=== PATIENT | male | born 1950 | race Caucasian/White ===

== ENCOUNTER 2022-08-10 10:50 | Observation (INO) ==
--- NOTE | 2022-08-10 11:02 | Emergency Department Note ---
Impression & Plan Atypical chest pain, Hypertension, Hyperlipidemia, Bifascicular block ED Provider Note NAME: MIKA FERRIS AGE: 72 SEX: M : 1950 ARRIVES VIA: Ambulance INFORMANT: Patient, ED PROVIDER(S): Melchor Atkins MD CHIEF COMPLAINT: MEDICAL DECISION MAKING: Patient presented due to concern for chest pain and palpitations. The patient did receive 4 baby aspirin en route. Patient did have blood work completed along with an EKG troponin and chest x- ray. Patient's blood work showed a normal white count H&H and platelet count. Kidney function is unremarkable. BSG 115 bilirubin 1.1. Patient has no right upper quadrant pain the patient is not DKA. Patient's initial troponin is negative. COVID-negative. Chest x-ray no acute findings. EKG with no signs of obvious acute ischemia. Given the patient's complaints of exertional chest pain do not think that the patient should immediately obtain a .stress test as the patient would have a moderate risk heart score. Given this concern I did speak with the on-call ospitalist service santhosh Kim and the patient was admitted by the medicine service by Dr. 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 Patient was ordered a stress echocardiogram at that time which was completed June 07, 2021. Patient had a negative exercise stress echo for ischemia at 84% max predicted heart rate as well as negative exercise stress EKG. There is no reported chest pain at the time of his stress test and the patient's echo showed normal LV function with no evidence of wall motion abnormalities and estimated LV ejection fraction 50 to 55%. Mild concentric LVH noted. Left atrium mildly dilated right ventricle normal size and function. Aortic root is normal size and the ascending aorta is also normal. Differential diagnosis: Cardiac ischemia, aortic dissection, pulmonary embolism, pneumothorax, pneumonia, pericarditis, myocarditis, esophageal rupture, GERD, cholecystitis, pancreatitis, musculoskeletal, as well as other pathologies. Diagnostics, as interpreted by me: ECG: Normal sinus rhythm, left axis deviation, rate of 71 wide QRS, right bundle branch block pattern. No obvious ST elevations, T wave inversion in lead III. Patient's EKG looks grossly unchanged from April 14, 2021. Cardiac monitoring: An order was placed for continuous cardiac monitoring. The monitor shows a rate of 77 with sinus rhythm. Patient was placed on pulse oximetry Medical decision rules: none Imaging studies: See below HPI: Patient presents due to concern for chest pains. Patient states they were left-sided but were occurring with exertion especially going upstairs. Patient denies any nausea vomiting or diaphoresis. The patient denies any alcohol or tobacco use. Patient states that he did have palpitations and lightheadedness today to where he stopped needing to come here to present for further evaluation and treatment. The patient did call EMS and was given 4 baby aspirin. No current chest pain. The patient denies any leg swelling history of DVT or PE no recent surgeries procedures or hospitalizations. Patient denies any falls or trauma no upper respiratory symptoms PAST MEDICAL HISTORY: See Below PAST SURGICAL HISTORY: See Below SOCIAL HISTORY: See Below HOME MEDICATIONS: See Below ALLERGIES: See Below VITALS: See Below PHYSICAL EXAMINATION: GENERAL: NAD, wearing a mask, non-toxic. EYE EXAM: Normal conjunctiva. PERRL, no anisocoria and EOM's grossly intact w/o pain. NECK: Supple, no nuchal rigidity, no adenopathy, non-tender. No signs of meningismus. FROM of the neck with good chin to chest and neck extension. No stridor. Chest: No reproducible chest wall pain. LUNGS: Clear to auscultation. Normal chest wall mechanics. HEART: NSR, no MRG. ABDOMEN: Abdomen soft, non-tender, normo-active bowel sounds, no masses, no rebound or guarding. BACK: No CVA TTP. SKIN: No rashes and no bruising. UPPER EXTREMITIES: Upper extremities are grossly normal. LOWER EXTREMITIES: Grossly normal, no edema. Negative Homans' sign bilaterally. NEURO EXAM: A&O x3, cranial nerves II-XII grossly intact, normal speech, moves all 4 extremities. Past Med/Surg History Medical History Elevated PSA Hyperlipidemia Hypertension Prediabetes Surgical History No significant past surgical history Family History Brother Heart disease Social History Smoking Status: Former smoker Second Hand Exposure: Yes; Do You Dip or Chew Tobacco: No; Tobacco Cessation Education Requested by Patient: Yes Hx Alcohol Use: Yes Alcohol type: wine Hx Substance Use: No Preferred Language: Cymro Communication Ability: Effective Cashier Credit Required: No Beliefs That Will Affect Care: None marital status: Current Living Situation: Spouse current occupational status: employed Other Information That Helps Us Care for You: No Feels Safe at Home: Yes Safety Concerns: Feels Safe At This Time Assistive Devices: None Allergies Allergies Allergy/AdvReac Type Severity Reaction Status Date / Time No Known Allergies Allergy Verified 06/23/22 09:05 Home Meds Home Medications Medication Instructions Recorded Confirmed atorvastatin 20 mg tablet 20 mg PO QAM 07/21/19 08/10/22 multivitamin 1 tab PO QAM 07/21/19 08/10/22 aspirin 81 mg tablet,delayed 81 mg PO QAM 04/13/21 08/10/22 release (Chani Low Dose Aspirin) lisinopril 40 mg tablet 40 mg PO DAILY 09/24/21 08/10/22 Results & Data (ED) Vital Signs Vital Signs - 24 hr 08/10/22 10:59 08/10/22 11:03 08/10/22 11:03 Temperature 36.6 C Temperature Source Oral Pulse Rate 76 Pulse Rate [Apical] 77 Pulse Rhythm [Apical] Regular Respiratory Rate 16 18 Respiratory Effort / Characteristics Non-Labored Respiratory Depth Normal Normal Blood Pressure 155/90 H Blood Pressure Mean 111 Pulse Oximetry 97 97 98 Oxygen Delivery Method Room Air Room Air Room Air Oxygen Flow Rate 0 Sepsis Recent Fever Within 48 Hours No Sepsis New/Unexplained Change in Mental Status N/A Sepsis Action Taken by Nursing No Action Required 08/10/22 12:25 08/10/22 13:02 Temperature Temperature Source Pulse Rate 71 Pulse Rate [Apical] 70 Pulse Rhythm [Apical] Respiratory Rate 16 Respiratory Effort / Characteristics Respiratory Depth Blood Pressure Blood Pressure Mean Pulse Oximetry 96 Oxygen Delivery Method Room Air Oxygen Flow Rate Sepsis Recent Fever Within 48 Hours Sepsis New/Unexplained Change in Mental Status Sepsis Action Taken by Intermediate Medications Current Medication List: was personally reviewed by me Laboratory Data Attestation: I reviewed the patient's lab results. 08/10/22 11:00 08/10/22 11:00 Lab Results 08/10/22 08/10/22 08/10/22 Range/Units 11:00 11:00 11:00 WBC 5.15 (4.8-10.8) K/ul RBC 4.88 (4.70-6.10) M/uL Hgb 14.6 (14.0-18.0) g/dl Hct 42.9 (42.0-52.0) % MCV 87.9 (80.0-100.0) fL MCH 29.9 (25.0-34.0) pg MCHC 34.0 (32.0-36.0) g/dL RDW Std Deviation 40.2 (36.4-46.3) fL RDW Coeff of Cierra 12.5 (11.5-14.5) % Plt Count 235 (130-400) K/uL MPV 10.9 (9.4-12.4) fL Immature Gran % (Auto) 0.4 % Neut % (Auto) 57.7 % Lymph % (Auto) 31.8 % Bollinger % (Auto) 7.8 % Eos % (Auto) 1.9 % Baso % (Auto) 0.4 % Neut # (Auto) 2.97 (1.40-6.50) K/uL Lymph # (Auto) 1.64 (1.2-3.4) K/uL Bollinger # (Auto) 0.40 (0.11-0.59) K/uL Eos # (Auto) 0.10 (0-0.50) K/uL Baso # (Auto) 0.02 (0-0.2) K/uL Immature Gran # (Auto) 0.02 (0.01-0.20) K/uL PT 10.6 (9.0-12.0) Seconds INR 1.0 (0.9-1.1) APTT 27.0 (21.0-31.0) Seconds PTT Ratio 1.0 Sodium 138 (136-145) mmol/L Potassium 4.3 (3.5-5.1) mmol/L Chloride 105 (98-107) mmol/L Carbon Dioxide 29 (21-32) mmol/L Anion Gap 4 (3-11) BUN 14 (6-23) mg/dl Creatinine 0.96 (0.6-1.4) mg/dl Est Cr Clr Drug Dosing 81.4 ml/min Est GFR ( Amer) 92.4 ml/min Est GFR (Non-Af Amer) 79.8 ml/min BUN/Creatinine Ratio 14.6 (10-20) Glucose 115 H (70-99(Fasting)) mg/dl Calcium 9.6 (8.5-10.1) mg/dl Total Bilirubin 1.1 H (0.2-1.0) mg/dl AST 18 (13-39) U/L ALT 32 (7-52) U/L Alkaline Phosphatase 52 (34-104) U/L Troponin I High Sens 4.7 (0-20) pg/ml Total Protein 7.4 (6.0-8.3) gm/dl Albumin 4.8 (3.4-5.0) gm/dl Globulin 2.6 (2.5-4.0) gm/dl Albumin/Globulin Ratio 1.8 (0.9-2) Lipase 74 (11-82) U/L Administered Medications Enoxaparin Sodium (Enoxaparin Inj 40 Mg/0.4 Ml Syr) 40 mg SQ Q24H MIKE Stop: 09/09/22 15:59 Last Admin: 08/10/22 16:32 Dose: Not Given Documented By: JOSE Nitroglycerin (Nitroglycerin 2% Ointment 30gm Tube) 0.5 inch EXT Q6H MIKE Stop: 09/09/22 14:44 Last Admin: 08/10/22 15:04 Dose: 0.5 inch Documented By: ARS Imaging Data Radiologist's Impression: Chest X-Ray 08/10/22 11:27 XR chest 1V portable CLINICAL HISTORY: Chest pain, nonspecific COMPARISON STUDY: Chest radiograph April 14, 2021. FINDINGS: Old, healed left clavicular fracture. Lung volumes are normal. Lungs are clear. There is no pneumothorax or pleural effusion. Mild cardiomegaly is unchanged. Mitral annular calcification is present. Mediastinal contours are normal. There is no evidence for pulmonary edema. Dextroscoliosis of the thoracic spine. IMPRESSION: No acute cardiopulmonary findings. No change in appearance of the chest. ACT 112: Negative or not required by law. Electronically signed by: Sabino Scott M.D. 08/10/2022 12:30 PM Discharge Plan Visit Data Chief Complaint: Chest Pain Stated Complaint: CHEST PAIN ED Provider: Melchor Atkins Discharge Problem: Atypical chest pain, Hypertension, Hyperlipidemia, Bifascicular block Patient Disposition: Admitted As Inpatient Discharge Instructions Interventions: ED Discharge Assessment Last Done: 08/10/22 15:38
[2022-08-10 12:12] LABS: Albumin Globulin Ratio 1.8 (0.9-2); Albumin Level 4.8 gm/dl (3.4-5.0); BUN Creatinine Ratio 14.6 (10-20); Bilirubin,Total 1.1 mg/dl (0.2-1.0); Calcium 9.6 mg/dl (8.5-10.1); Creatinine Clr Calc Pharmacy 81.4 ml/min; Est GFR (African American) 92.4 ml/min; Est GFR (Non-African American) 79.8 ml/min; Globulin 2.6 gm/dl (2.5-4.0); Potassium 4.3 mmol/L (3.5-5.1); Total Protein 7.4 gm/dl (6.0-8.3)
[2022-08-10 12:15] LABS: Basophils # (auto) 0.02 K/uL (0-0.2); Basophils % (auto) 0.4 %; Eosinophils % (auto) 1.9 %; Hematocrit (blood only) 42.9 % (42.0-52.0); Hemoglobin 14.6 g/dl (14.0-18.0); Immature Granulocytes # (auto) 0.02 K/uL (0.01-0.20); Immature Granulocytes % (auto) 0.4 %; Lymphocytes # (auto) 1.64 K/uL (1.2-3.4); Lymphocytes % (auto) 31.8 %; Mean Corpuscular Hemoglobin 29.9 pg (25.0-34.0); Mean Corpuscular Volume 87.9 fL (80.0-100.0); Mean Platelet Volume 10.9 fL (9.4-12.4); Monocytes % (auto) 7.8 %; Neutrophils # (auto) 2.97 K/uL (1.40-6.50); Neutrophils % (auto) 57.7 %; Platelet Count 235 K/uL (130-400); RDW Coefficient of Variation 12.5 % (11.5-14.5); RDW Standard Deviation 40.2 fL (36.4-46.3); Red Blood Count 4.88 M/uL (4.70-6.10); White Blood Count 5.15 K/ul (4.8-10.8)
[2022-08-10 12:18] LABS: Troponin I High Sensitivity 4.7 pg/ml (0-20)
--- NOTE | 2022-08-10 12:31 | XRay Report ---
XR chest 1V portable CLINICAL HISTORY: Chest pain, nonspecific COMPARISON STUDY: Chest radiograph April 14, 2021. FINDINGS: Old, healed left clavicular fracture. Lung volumes are normal. Lungs are clear. There is no pneumothorax or pleural effusion. Mild cardiomegaly is unchanged. Mitral annular calcification is pr esent. Mediastinal contours are normal. There is no evidence for pulmonary edema. Dextroscoliosis of the thoracic spine. IMPRESSION: No acute cardiopulmonary findings. No change in appearance of the chest. ACT 112: Negative or not required by law. Electronically signed by: Sabino Scott M.D. 08/10/2022 12:30 PM
[2022-08-10 12:42] LABS: Prothrombin Time 10.6 Seconds (9.0-12.0)
--- NOTE | 2022-08-10 13:47 | History & Physical Report ---
Date of Service August 10, 2022 Assessment & Plan (1) Chest pain: (2) Palpitations: Plan: Patient is 72-year-old male with PMH HTN, HLD, prediabetes, bifascicular block, BPH presented to ER with complaint of chest pain, palpitations. Intermittent symptoms past year. This morning at rest onset palpitations, left anterior chest pain with lightheadedness 04/2021 14-day heart monitor that showed sinus rhythm with rare isolated atrial and ventricular ectopy. Patient triggered events of "skipped beats" sometimes correlated with ectopy. 06/07/2021 stress test: Negative for ischemia at 84% MPHR Currently following with Dr Paul Thomas cardiology CHEST PAIN R/O ACS. Risk factors: HTN, HLD. R/O arrhythmia In ER vitals stable. Initial high-sensitivity troponin: 4.7. EKG sinus rhythm, RBBB, LVH EMS gave patient 324mg aspirin Patient denies current chest pain but reports "hollow sensation" Nitropaste applied Repeat EKG in am Will trend troponin Echo Lipid panel in am, continue atorvastatin Continue aspirin Cardiology consult, [facility] (3) Hypertension: Plan: Continue lisinopril (4) Hyperlipidemia: Plan: Continue atorvastatin (5) Prediabetes: Plan: A1c in a.m. Diabetic diet (6) Bifascicular block: Plan: History of bifascicular block DVT Prophylaxis Lovenox SQ Full Code as per discussion with pt Follows with Dr Tanner at [facility] for routine care Pt was seen and care coordinated with Dr Julien. See addendum I spent a total of 65 minutes reviewing notes, outpatient records, labs, medication, coordinating, documenting and providing care for this patient excluding time spent in the performance of separately billed services. History of Present Illness Chief Complaint: Chest pain Primary Care Provider: Owen Tanner Patient is 72-year-old male with PMH HTN, HLD, prediabetes, bifascicular block, BPH presented to ER with complaint of chest pain. Patient reports for the past year has been having intermittent palpitations. He describes them as sensation that his heart is beating irregular and beating harder. Sometimes this is associated with left-sided chest pain that is nonradiating. Sometimes this pain is sharp. Reports symptoms can occur at rest or with climbing stairs. When occurs with climbing stairs he feels short of breath. Symptoms usually last a few minutes and resolve with rest. Today he was sitting in meeting when he had onset of left-sided chest pain with sensation that his heart was beating hard and he had associated lightheadedness. Patient reports this is the first time he has felt lightheaded with the symptoms. Denies nausea, vomiting, diaphoresis . EMS gave patient 324mg aspirin. In ER patient currently reports he feels like his heart is beating irregularly. Denies chest pain but reports his heart feels "hollow". Denies fever/chills, diaphoresis, N/V/D/C, DANIELLE, syncope, vision changes, neck pain, orthopnea, cough, sore throat, choking, otalgia, rhinorrhea, abdominal pain, paresthesias, weakness, extremity weakness, extremity edema, rashes, urinary symptoms. Per chart review patient was seen by [facility] cardiology on 04/30/2021 for palpitations. Had 14-day heart monitor that showed sinus rhythm with rare isolated atrial and ventricular ectopy. Patient triggered events of "skipped beats" sometimes correlated with ectopy. Stress test 06/07/2021: Negative for ischemia at 84% MPHR States currently following with Dr Paul Thomas cardiology Allergies Allergy/AdvReac Type Severity Reaction Status Date / Time No Known Allergies Allergy Verified 06/23/22 09:05 Home Medications Medication Instructions Recorded Confirmed Type atorvastatin 20 mg tablet 20 mg PO QAM 07/21/19 08/10/22 History multivitamin 1 tab PO QAM 07/21/19 08/10/22 History aspirin 81 mg tablet,delayed 81 mg PO QAM 04/13/21 08/10/22 History release (Chani Low Dose Aspirin) lisinopril 40 mg tablet 40 mg PO DAILY 09/24/21 08/10/22 History Past Med/Surg History Medical History Elevated PSA Hyperlipidemia Hypertension Prediabetes Surgical History No significant past surgical history Family History Brother Heart disease Social History Smoking Status: Former smoker Second Hand Exposure: Yes; Do You Dip or Chew Tobacco: No; Tobacco Cessation Education Requested by Patient: Yes Hx Alcohol Use: Yes Alcohol type: wine Hx Substance Use: No Preferred Language: Luxembourgish Communication Ability: Effective Dna Sequencing Associate Required: No Beliefs That Will Affect Care: None marital status: Current Living Situation: Spouse current occupational status: employed Other Information That Helps Us Care for You: No Feels Safe at Home: Yes Safety Concerns: Feels Safe At This Time Assistive Devices: None Review of Systems Review of Systems: All systems reviewed & are unremarkable except as noted in HPI & below Physical Exam Physical Exam: General: no distress, WDWN Head: normocephalic, atraumatic Eyes: conjunctiva non-injected, anicteric ENT: normal inspection external ears, nose, mucous membranes moist Neck: supple, trachea midline Lungs: clear, no respiratory distress, no wheezing/rhonchi/rales CV: RRR, no murmur, no pretibial edema Abd: normal BS, soft, non-tender Ext: no cyanosis, no calf tenderness Neuro: A&O x 3, no focal deficits noted, normal affect Skin: warm, dry Results & Data Results & Data ([facility]) Vital Signs (Past 12 Hours) Vital Signs Temp Pulse Pulse Resp BP Pulse Ox O2 Del Method 08/10/22 13:02 70 16 96 Room Air 08/10/22 12:25 71 08/10/22 11:03 77 18 98 Room Air 08/10/22 11:03 97 Room Air 08/10/22 10:59 36.6 C 76 16 155/90 H 97 Room Air O2 Flow Rate 08/10/22 13:02 08/10/22 12:25 08/10/22 11:03 08/10/22 11:03 0 08/10/22 10:59 Laboratory Results Short CBC 08/10/22 Range/Units 11:00 WBC 5.15 (4.8-10.8) K/ul Hgb 14.6 (14.0-18.0) g/dl Hct 42.9 (42.0-52.0) % Plt Count 235 (130-400) K/uL BMP 08/10/22 11:00 Sodium 138 Potassium 4.3 Chloride 105 Carbon Dioxide 29 BUN 14 Creatinine 0.96 Glucose 115 H Calcium 9.6 Liver Function 08/10/22 Range/Units 11:00 Total Bilirubin 1.1 H (0.2-1.0) mg/dl AST 18 (13-39) U/L ALT 32 (7-52) U/L Alkaline Phosphatase 52 (34-104) U/L Albumin 4.8 (3.4-5.0) gm/dl Diagnostic Findings Chest X-Ray 08/10/22 11:27 XR chest 1V portable CLINICAL HISTORY: Chest pain, nonspecific COMPARISON STUDY: Chest radiograph April 14, 2021. FINDINGS: Old, healed left clavicular fracture. Lung volumes are normal. Lungs are clear. There is no pneumothorax or pleural effusion. Mild cardiomegaly is unchanged. Mitral annular calcification is present. Mediastinal contours are normal. There is no evidence for pulmonary edema. Dextroscoliosis of the thoracic spine. IMPRESSION: No acute cardiopulmonary findings. No change in appearance of the chest. ACT 112: Negative or not required by law. Electronically signed by: Sabino Scott M.D. 08/10/2022 12:30 PM ECG Rate (beats per minute): 71 Rhythm: sinus rhythm Findings: + other (LVH) and + RBBB Supervising Physician Co-Signing Physician Notes I have seen and examined the patient and have discussed the case with the pr ovider above. I agree with the assessment and plan as stated. 72 yo M nonsmoker with HTN and family history of early CAD in brother in his 50s presents with left anterior chest pain and palpations. His pain is uncomfortable and he is describing malaise. He also reports that his pain is worse with exertion. Nitro paste applied with ongoing 2/10 pain and BP 155 systolic. Trend trop and monitor on tele overnight. Consideration for stress test per cardiology. Has had this issue in thee past with a normal stress. Current trop is negative and no acute ischemic changes on EKG. Phsyical exam is unremarkable. WNWD man in NAD. No anterior chest wall tenderness to palpation. clear lungs, no heart murmur and S1/2 heard. Reeg rate and rhythm. Agree with plan as above. DO Wily (1) Chest pain Chest pain type: unspecified Qualified Code(s): R07.9 - Chest pain, unspecified
[2022-08-10] MEDS: NITROGLYCERIN 2% OINTMENT 30GM TUBE EXT SCH ×2 (15:04→20:02)
--- NOTE | 2022-08-10 15:51 | Electrocardiogram Report ---
Test Reason : Blood Pressure : / mmHG Vent. Rate : 071 BPM Atrial Rate : 071 BPM P-R Int : 164 ms QRS Dur : 128 ms QT Int : 426 ms P-R-T Axes : 018 -40 020 degrees QTc Int : 462 ms Poor data quality, interpretation may be adversely affected Normal sinus rhythm Left axis deviation Right bundle branch block Voltage criteria for left ventricular hypertrophy Cannot rule out Septal infarct (cited on or before 10-AUG-2022) Abnormal ECG When compared with ECG of 14-APR-2021 11:03, Questionable change in initial forces of Septal leads Confirmed by Huang Taylor ([id number]) on 08/10/2022 3:51:35 PM Referred By: Confirmed By:Huang Taylor
[2022-08-10] MEDS ORDERED: POLYETHYLENE (MIRALAX) 17 GM PACK PO PRN (15:52)
[2022-08-10] MEDS ORDERED: ACETAMINOPHEN 325 MG TAB PO PRN (15:52)
[2022-08-10] MEDS ORDERED: PNEUMOCOCCAL Polysaccharide Vaccine 25mcg/0.5mL vial/Syr IM ONE (16:30)
[2022-08-10] MEDS: ENOXAPARIN INJ 40 MG/0.4 ML SYR SQ SCH (16:32)
[2022-08-11 03:14] LABS: Hemoglobin 13.5 g/dl (14.0-18.0); Mean Corpuscular Hemoglobin 29.9 pg (25.0-34.0); Mean Corpuscular Hgb Conc 34.6 g/dL (32.0-36.0); Mean Corpuscular Volume 86.5 fL (80.0-100.0); Mean Platelet Volume 10.6 fL (9.4-12.4); Platelet Count 229 K/uL (130-400); RDW Coefficient of Variation 12.6 % (11.5-14.5); RDW Standard Deviation 39.8 fL (36.4-46.3); Red Blood Count 4.51 M/uL (4.70-6.10); White Blood Count 9.86 K/ul (4.8-10.8)
[2022-08-11 03:29] LABS: BUN Creatinine Ratio 15.8 (10-20); Calcium 9.2 mg/dl (8.5-10.1); Chol HDL Ratio 3.4 (0-5); Creatinine Clr Calc Pharmacy 74.1 ml/min; Est GFR (African American) 86.9 ml/min; Potassium 3.9 mmol/L (3.5-5.1)
[2022-08-11 06:21] LABS: Estimated Average Glucose 137 mg/dl; Hemoglobin A1C 6.4 % (4.5-5.6)
[2022-08-11] MEDS ORDERED: ASPIRIN 81 MG ECTAB PO SCH (09:00)
[2022-08-11] MEDS ORDERED: lisinopril 40 MG TAB PO SCH (09:00)
[2022-08-11] MEDS ORDERED: ATORVASTATIN 20 MG TAB PO SCH (09:00)
--- NOTE | 2022-08-11 12:08 | XCELERA ---
[id number]
--- NOTE | 2022-08-11 14:47 | Cardiology Consultation ---
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 Systolic anterior motion of the mitral leaflet: Discussed findings with patient. Recommended stress echo to evaluate for LVOT obstruction with exercise and also for additional Doppler to investigate for obstruction with Valsalva. Stress echo performed. Mild gradient with Valsalva and severe gradient following exercise, consistent with LVOT obstruction from ROXANNE. Recommend metoprolol 25 mg twice daily. This will likely require further titration. If blood pressure acceptable, would recommend reduction in PRAVEEN inhibitor. Remain well-hydrated. 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 2. LVOT obstruction: Plan as above. Increase diastolic filling time and preload. 3. Palpitations: Symptoms occur anytime but triggered by more strenuous exercise. Stress echo as above demonstrating significant LVOT obstruction following exercise. Treat with beta-miroslava as above and reassess symptoms. Optimize medical therapy as appropriate. 4. Paroxysmal atrial tachycardia: Unclear if this is playing a role in his symptoms but may improve with beta-miroslava as above. 5. Hypertension: Blood pressure has been mostly mildly elevated. Initiating beta-miroslava as above. Can continue PRAVEEN inhibitor for now but overall symptoms/obstruction may improve with reduction in PRAVEEN inhibitor as well as titration of betablocker. Further adjustments can be made as an outpatient. 6. Disposition: Can be discharged from a cardiology perspective, on beta- miroslava as noted above. Close follow-up with his primary navy seal, Dr. Miller, recommended within 1 to 2 weeks. Echo and stress echo findings were discussed with him in detail. Patient care personally discussed with primary hospitalist, Dr. Julien. Thank you for allowing me to participate in the care of your patient. Please call for any other questions or concerns. Sincerely, Iraj Michelle M.D. History of Present Illness Reason for Consultation: Chest pain Requesting Physician: Andria Kim Attending Physician: Alcira Julien, History of Present Illness Mr. Arias is a very pleasant 72-year-old gentleman with a history significant for hypertension, dyslipidemia, and borderline diabetes. His primary navy seal is Dr. Miller in the [place] area. He has had the following studies/procedures: 1. Event monitor 04/24/2021 to 05/13/2021: Rare isolated atrial and ventricular ectopy. "Skipped beats" sometimes correlated with ectopy. 2. Stress echo 06/07/2021 MI PG: Negative stress echo at 84% MPHR. Normal LV systolic function. 6 minutes Steve protocol. He presented and was admitted to [facility] on 08/10/2022 for chest discomfort and palpitations. He states that he has been experiencing symptoms for approximately 1 year, ever since he developed right bundle branch block. He was seen by Dr. Miller in the outpatient setting, prior to these symptoms with no specific treatment necessary at that time. He states that symptoms can occur anytime and typically feel as though his heart is beating hard and fast. He states that this makes his chest uncomfortable. This can be triggered by climbing stairs but also occurs at rest. On the day of presentation, it occurred during a meeting and he felt near syncopal. Symptoms persisted for approximately 15 minutes, before subsiding. He also describes a "hollow" feeling in his chest. This has been nearly constant while here and was present during today's visit. He states that this worsens with coffee within 30 minutes. He has dyspnea with exertion while climbing stairs but believes it is due to being deconditioned. He otherwise denies shortness of breath at rest. He denies syncope, edema, melena, hematochezia, hematuria, nausea, vomiting, fever. He does not wear a smart watch or Fitbit. When he has palpitations, he is not certain of his heart rate. Dr. Julien reports that he had palpitations while in the emergency department and there was no arrhythmia noted on telemetry. Review of systems: As above. Review of systems otherwise negative/unremarkable. Family history: Younger brother had CABG in his 50s. Mother had "tachycardia." Social history: He denies smoking, alcohol, or drug abuse. He lives at home with his . They have 3 children, 1 son and 2 daughters. He works for [employer], currently in the [place] department. He was unaccompanied in his hospital room for this consultation. Allergies Allergy/AdvReac Type Severity Reaction Status Date / Time No Known Allergies Allergy Verified 06/23/22 09:05 Home Medications Medication Instructions Recorded Confirmed Type atorvastatin 20 mg tablet 20 mg PO QAM 07/21/19 08/10/22 History multivitamin 1 tab PO QAM 07/21/19 08/10/22 History aspirin 81 mg tablet,delayed 81 mg PO QAM 04/13/21 08/10/22 History release (Chani Low Dose Aspirin) lisinopril 40 mg tablet 40 mg PO DAILY 09/24/21 08/10/22 History Patient History Medical History Elevated PSA Hyperlipidemia Hypertension Prediabetes Surgical History No significant past surgical history Family History Brother Heart disease Social History Smoking Status: Former smoker Second Hand Exposure: Yes; Do You Dip or Chew Tobacco: No; Tobacco Cessation Education Requested by Patient: Yes Hx Alcohol Use: Yes Alcohol type: wine Hx Substance Use: No Preferred Language: Luxembourgish Communication Ability: Effective 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 Alert and oriented. HEENT: Anicteric sclera. Neck: No JVD. No bruits. Normal carotid upstrokes bilaterally. Cardiac: PMI was nondisplaced. No ventricular heave. Regular. No ectopy. Normal S1-S2. 2/6 systolic ejection murmur best heard at right upper sternal border. No rubs, or gallops. Pulmonary: Clear to auscultation bilaterally without wheezes, rales, or rhonchi. Abdomen: Soft, nontender, nondistended, with normoactive bowel sounds. No bruits noted. Extremities: 2+ radial pulses bilaterally. 2+ posterior tibialis pulses bilaterally. No edema or cyanosis. Psychiatric: Affect appears appropriate. Results & Data ([facility]) Vital Signs (Past 12 Hours) Vital Signs Temp Pulse Resp BP Pulse Ox O2 Del Method 08/11/22 11:30 36.6 C 64 18 153/72 H 96 Room Air 08/11/22 07:14 36.6 C 60 16 117/72 94 Room Air 08/11/22 04:13 36.5 C 58 L 18 116/60 95 Room Air Laboratory Results Laboratory Results - last 24 hr 08/10/22 08/10/22 08/10/22 15:07 16:55 21:09 WBC RBC Hgb Hct MCV MCH MCHC RDW Std Deviation RDW Coeff of Cierra Plt Count MPV Sodium Potassium Chloride Carbon Dioxide Anion Gap BUN Creatinine Est Cr Clr Drug Dosing Est GFR ( Amer) Est GFR (Non-Af Amer) BUN/Creatinine Ratio Glucose POC Glucose 133 H Estimat Average Glucose Hemoglobin A1c Calcium Troponin I High Sens 5.5 5.9 Triglycerides Cholesterol LDL Cholesterol, Calc VLDL Cholesterol, Calc HDL Cholesterol Cholesterol/HDL Ratio 08/11/22 08/11/22 08/11/22 02:37 02:37 02:37 WBC 9.86 RBC 4.51 L Hgb 13.5 L Hct 39.0 L MCV 86.5 MCH 29.9 MCHC 34.6 RDW Std Deviation 39.8 RDW Coeff of Cierra 12.6 Plt Count 229 MPV 10.6 Sodium 138 Potassium 3.9 Chloride 105 Carbon Dioxide 27 Anion Gap 6 BUN 16 Creatinine 1.01 Est Cr Clr Drug Dosing 74.1 Est GFR ( Amer) 86.9 Est GFR (Non-Af Amer) 75.0 BUN/Creatinine Ratio 15.8 Glucose 116 H POC Glucose Estimat Average Glucose 137 Hemoglobin A1c 6.4 H Calcium 9.2 Troponin I High Sens Triglycerides 127 Cholesterol 136 LDL Cholesterol, Calc 71 VLDL Cholesterol, Calc 25 HDL Cholesterol 40 Cholesterol/HDL Ratio 3.4 08/11/22 02:37 WBC RBC Hgb Hct MCV MCH MCHC RDW Std Deviation RDW Coeff of Cierra Plt Count MPV Sodium Potassium Chloride Carbon Dioxide Anion Gap BUN Creatinine Est Cr Clr Drug Dosing Est GFR ( Amer) Est GFR (Non-Af Amer) BUN/Creatinine Ratio Glucose POC Glucose Estimat Average Glucose Hemoglobin A1c Calcium Troponin I High Sens 5.7 Triglycerides Cholesterol LDL Cholesterol, Calc VLDL Cholesterol, Calc HDL Cholesterol Cholesterol/HDL Ratio Diagnostic Findings Telemetry personally reviewed: Sinus rhythm. No arrhythmia. Rare PAC. Previous stress echo report and event monitor report reviewed as noted above in HPI. Chart reviewed. History and physical report reviewed. ECGs personally reviewed: ECG 08/10/2022 at 10:55 AM: Sinus rhythm 71 bpm. RBBB. LVH. ECG 08/11/2022 at 5:28 AM: Sinus rhythm 64 bpm. RBBB. LVH. Chest x-ray 08/10/2022: No acute cardiopulmonary findings. Echo 08/11/2022: Normal LV size, wall motion, systolic function. EF 65 to 70%. Severe LVH. Severe left atrial dilation. Mild AI. Systolic anterior motion of the mitral leaflet without significant obstruction at baseline. Normal RVSP. Labs reviewed: High-sensitivity troponin remain negative. Medications Administered Current Inpatient Medications Acetaminophen (Acetaminophen 325 Mg Tab) 650 mg PO Q4H PRN PRN Reason: Pain or Fever Stop: 09/09/22 15:51 Last Admin: 08/11/22 02:52 Dose: 650 mg Aspirin (Aspirin 81 Mg Ectab) [facility] Stop: 09/10/22 08:59 Last Admin: 08/11/22 07:20 Dose: 81 mg Atorvastatin Calcium (Atorvastatin 20 Mg Tab) 20 mg PO QAM [facility] Stop: 09/10/22 08:59 Last Admin: 08/11/22 07:20 Dose: 20 mg Enoxaparin Sodium (Enoxaparin Inj 40 Mg/0.4 Ml Syr) 40 mg SQ Q24H [facility] Stop: 09/09/22 15:59 Last Admin: 08/10/22 16:32 Dose: Not Given Lisinopril (Lisinopril 40 Mg Tab) 40 mg PO DAILY [facility] Stop: 09/10/22 08:59 Last Admin: 08/11/22 07:20 Dose: 40 mg Nitroglycerin (Nitroglycerin 2% Ointment 30gm Tube) 0.5 inch EXT Q6H [facility] Stop: 09/09/22 14:44 Last Admin: 08/10/22 20:02 Dose: 0.5 inch Polyethylene Glycol (Polyethylene (Miralax) 17 Gm Pack) 17 gm PO DAILY PRN PRN Reason: Constipation Stop: 09/09/22 15:51 PG Care Time/CCT Total # of Minutes Spent Total Time Spent with Patient: Total time spent is greater than 50% in coordination of care (as documented) at patient's floor/unit and/or counseling patient: Coding Level of Care Code 61970 INT INP/OBS CARE MIN Diagnoses Systolic anterior movement of mitral valve I34.89 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
--- NOTE | 2022-08-11 15:21 | XCELERA ---
[id number]
--- NOTE | 2022-08-11 15:46 | Discharge Summary ---
Discharge Summary Date of Service August 11, 2022 Notes For Next Care Provider Needs cardiology follow-up in 2 weeks May need Metoprolol titrated Medication Changes From Visit NEW Metoprolol Admission HPI Per Admitting Provider Patient is 72-year-old male with PMH HTN, HLD, prediabetes, bifascicular block, BPH presented to ER with complaint of chest pain. Patient reports for the past year has been having intermittent palpitations. He describes them as sensation that his heart is beating irregular and beating harder. Sometimes this is associated with left-sided chest pain that is nonradiating. Sometimes this pain is sharp. Reports symptoms can occur at rest or with climbing stairs. When occurs with climbing stairs he feels short of breath. Symptoms usually last a few minutes and resolve with rest. Today he was sitting in meeting when he had onset of left-sided chest pain with sensation that his heart was beating hard and he had associated lightheadedness. Patient reports this is the first time he has felt lightheaded with the symptoms. Denies nausea, vomiting, diaphoresis. EMS gave patient 324mg aspirin. In ER patient currently reports he feels like his heart is beating irregularly. Denies chest pain but reports his heart feels "hollow". Denies fever/chills, diaphoresis, N/V/D/C, DANIELLE, syncope, vision changes, neck pain, orthopnea, cough, sore throat, choking, otalgia, rhinorrhea, abdominal pain, paresthesias, weakness, extremity weakness, extremity edema, rashes, urinary symptoms. Per chart review patient was seen by [facility] cardiology on 04/30/2021 for palpitations. Had 14-day heart monitor that showed sinus rhythm with rare isolated atrial and ventricular ectopy. Patient triggered events of "skipped beats" sometimes correlated with ectopy. 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 Intermittent symptoms past year. He described left anterior chest pain with lightheadedness. Admitted to medicine and cardiology consulted. Overnight telemetry was unremarkable. Nitro paste applied and removed later that night because of relative hypotension. Serial cardiac enzymes were negative overnight and serial EKG did not suggest acute ischemia. Echocardiogram revealed systolic anterior motion of the mitral leaflet and he then underwent a stress echo to evaluate for LVOT obstruction with exercise and for additional Doppler to investigate for obstruction with Valsalva. A mild gradient with Valsalva and severe gradient following exercise resulted, consistent with LVOT obstruction from ROXANNE. Metoprolol 25mg PO BID was started and this will likely require further titration. Close cardiology follow-up was recommended. He was discharged in stable condition. Discharge Exam CONSTITUTIONAL: WNWD, vitals as above, generally well-appearing EYES: normal conjunctivae, no scleral icterus ENT: external ear and nose normal, MMM NECK: trachea midline RESPIRATORY: clear to auscultation bilaterally, no crackles, rales or wheezes, normal respiratory effort CARDIOVASCULAR: regular rate and rhythm, S1 and 2 heard without murmurs, gallops or rubs, no JVD, no peripheral edema CHEST: inspection of chest was normal GASTROINTESTINAL: soft, nontender, ND, no guarding MUSCULOSKELETAL: strength 5/5 throughout, head is normocephalic and atraumatic, SKIN: warm and dry NEUROLOGIC: CN 2-12 grossly intact, no sensory deficit, normal cognition, normal speech, no tremor PSYCHIATRIC: alert cooperative and oriented to person, place and time. Updated Medication List Medication Instructions Recorded Confirmed Type atorvastatin 20 mg tablet 20 mg PO QAM 07/21/19 08/10/22 History multivitamin 1 tab PO QAM 07/21/19 08/10/22 History aspirin 81 mg tablet,delayed 81 mg PO QAM 04/13/21 08/10/22 History release (Chani Low Dose Aspirin) lisinopril 40 mg tablet 40 mg PO DAILY 09/24/21 08/10/22 History metoprolol tartrate 25 mg tablet 25 mg PO BID #60 tabs 08/11/22 Rx Hospital Stay Data Consultations 08/10/22 13:28 ED Decision to Admit Stat 08/10/22 14:25 Consult Cardiology Routine Pending Results Patient Have Any Pending Studies at Discharge: No Discharge Instructions Given to Patient (Per Discharging Provider) Please take all medications as instructed on discharge list below. You are being given METOPROLOL which helps to slow down the heart rate among other things. This medication may need to be adjusted, so a close cardiology follow up in 2 weeks is recommended. Please also follow-up with your primary care physician in the next week to ensure you are improved after hospitalization. It was a pleasure taking care of you! Please call if you have any questions or problems. You can reach a [facility] hospitalist on duty at [facility] 24 hours a day by calling [phone]. Take care of yourself. Alcira Julien, DO [facility] Total Time Total Time Spent Total Time Spent (In Minutes): 60
[2022-08-11] MEDS: ENOXAPARIN INJ 40 MG/0.4 ML SYR SQ SCH (16:28)
--- NOTE | 2022-08-12 04:58 | Electrocardiogram Report ---
Test Reason : Blood Pressure : / mmHG Vent. Rate : 064 BPM Atrial Rate : 064 BPM P-R Int : 174 ms QRS Dur : 126 ms QT Int : 458 ms P-R-T Axes : 023 -42 000 degrees QTc Int : 472 ms Normal sinus rhythm Left axis deviation Right bundle branch block Voltage criteria for left ventricular hypertrophy Abnormal ECG When compared with ECG of 10-AUG-2022 10:55, No significant change Confirmed by Tyler Michelle ([id number]) on 08/12/2022 4:57:38 AM Referred By: REFERRED SELF Confirmed By:Tyler Michelle
== END 2022-08-11 17:25 | disposition home or self-care (01) ==
LOC: ED 10:50 → 2N 10:50

== ENCOUNTER 2022-08-23 07:07 | Inpatient (IN) ==
[2022-08-23] MEDS ORDERED: MoRPHine SULFATE 4 MG/ML 1 ML CARP\\VIAL IV STA ×2 (07:22→09:22)
[2022-08-23] MEDS ORDERED: SODIUM CHLORIDE 0.9% 1000ML 1,000 ML IV STA (07:22)
[2022-08-23] MEDS ORDERED: ONDANSETRON INJ 2 MG/ML 2 ML VIAL IV STA (07:22)
--- NOTE | 2022-08-23 07:29 | Emergency Department Note ---
History of Present Illness General Chief complaint: Abdominal Pain Stated complaint: ABDOMINAL PAIN,NAUSEA Time Seen by Provider: 08/23/22 07:14 History of Present Illness Maximum Pain Intensity: 10 72 year old male who presents to ED today with c/o abdominal pain. Patient states he started with periumbilical abdominal pain 2 nights ago following eating steak dinner. He was able to make himself vomit a couple times and then symptoms eventually resolved on their own. Symptoms returned last night around 9p. The pain is constant and crampy in nature. It radiates to his low back. It seems to worsen after eating. Nothing makes it better. He reports nausea but has been unable to vomit since the previous night. He denies fever, chills, sweats, hematemesis, chest pain, SOB, diarrhea/constipation, hematochezia, melena, urinary symptoms. He took Tums last night without improvement of symptoms. He was scheduled to get his prostate biopsied this morning for further evaluation of enlargement. He took one empiric Cipro antibiotic this morning. He notes a history of a umbilical hernia repair 3.5 years ago. Denies history of AAA, diverticulitis, IBD, kidney stones, UTI. Home Medications Medication Instructions Recorded Confirmed Type atorvastatin 20 mg tablet 20 mg PO QAM 07/21/19 08/23/22 History multivitamin 1 tab PO QAM 07/21/19 08/23/22 History aspirin 81 mg tablet,delayed 81 mg PO QAM 04/13/21 08/23/22 History release (Chani Low Dose Aspirin) lisinopril 40 mg tablet 40 mg PO DAILY 09/24/21 08/23/22 History ciprofloxacin HCl 500 mg tablet 500 mg PO BID #2 tabs 08/22/22 08/23/22 Rx metoprolol tartrate 25 mg tablet 50 mg PO BID 08/23/22 08/23/22 History Allergies Allergy/AdvReac Type Severity Reaction Status Date / Time No Known Allergies Allergy Verified 06/23/22 09:05 Past Med/Surg History Medical History (Updated 08/23/22 @ 16:08 by Kalpana Jacobsen PA-C) Elevated PSA Hyperlipidemia Hypertension Paroxysmal atrial tachycardia Prediabetes Surgical History (Updated 08/23/22 @ 11:24 by Sherley Duff PA-C) Hx of umbilical hernia repair Family History Brother Heart disease Social History (Updated 08/23/22 @ 14:45 by Chantell Mondragon DO) Smoking Status: Former smoker Age Started Using Tobacco: 12; Age Quit Using Tobacco: 20; packs per day: 1; Second Hand Exposure: Yes; Hx Alcohol Use: Yes Alcohol type: wine Hx Substance Use: No Preferred Language: [place] Communication Ability: Effective Safety Intern Required: No Beliefs That Will Affect Care: None marital status: Current Living Situation: Spouse current occupational status: employed Feels Safe at Home: Yes Assistive Devices: None Physical Exam Vital Signs Vital Signs - 24 hr 08/23/22 07:09 08/23/22 07:48 Temperature 36.4 C L Temperature Source Temporal Artery Scan Pulse Rate 64 Pulse Rhythm Regular Pulse Strength Normal Respiratory Rate 24 Respiratory Effort / Characteristics Non-Labored Spontaneous Respiratory Depth Normal Respiratory Pattern Regular Blood Pressure 188/84 H Blood Pressure Mean 118 Blood Pressure Position Sitting Pulse Oximetry 99 99 Oxygen Delivery Method Room Air Nasal Cannula Oxygen Flow Rate 1 Sepsis Recent Fever Within 48 Hours No Sepsis New/Unexplained Change in Mental Status No Sepsis Action Taken by Nursing No Action Required Constitutional: alert and oriented x3. moderate distress. nontoxic appearing Respiratory: lungs are clear to auscultation without wheezes, rhonchi, or rales bilaterally. equal chest rise. normal respiratory effort, no accessory muscle use. Cardiovascular: normal heart sounds without murmur. regular rate and rhythm. GI: abdomen is soft, nondistended. nl bowel sounds present throughout. Diffuse tenderness worse periumbilical. No palpable masses. No rebound tenderness or guarding. No CVA tenderness Psych:appropriate mood and affect. Course Course patient seen and evaluated in rm A10. In moderate distress secondary to pain IV access was established and labs were drawn Patient placed on media monitor, personally interpreted as normal sinus rhythm at 65 bpm He was medicated with IV fluids, zofran and morphine 4mg Reevaluation(s) Reevaluation #1: patient resting comfortably with improved pain s/p medications. Labs and imaging pending Reevaluation #2: Patient updated on exam findings and test results. CT which demonstrates closed loop SBO without evidence of perforation or wall ischemia. Given findings, I have recommendation admission to hospital for further management. Case was discussed with hospitalist, Estefani Duff PA-C who graciously accepted patient to their service. Administered Medications Morphine Sulfate (Morphine Sulfate 4 Mg/Ml 1 Ml Carp\Vial) 4 mg IV Q3H PRN PRN Reason: Pain, severe rating 7,8,9,10 Stop: 09/06/22 14:15 Last Admin: 08/23/22 15:58 Dose: 4 mg Documented By: JOSE Discontinued Medications Sodium Chloride (Nss 1000ml) 1,000 mls @ 999 mls/hr IV .Q1H1M STA Stop: 08/23/22 08:22 Last Infusion: 08/23/22 09:15 Dose: 0 mls/hr Documented By: Admin: 08/23/22 07:43 Dose: 999 mls/hr Documented By: KYRA Ioversol (Optiray 350 100ml) 90 ml IV ONCE ONE Stop: 08/23/22 08:42 Last Admin: 08/23/22 08:42 Dose: 90 ml Documented By: RAY Labetalol HCl (Labetalol Hcl Iv 5 Mg/Ml 20ml) 5 mg IV NOW STA Stop: 08/23/22 11:27 Last Admin: 08/23/22 11:47 Dose: 5 mg Documented By: KYRA Co-signed By: HELENA Morphine Sulfate (Morphine Sulfate 4 Mg/Ml 1 Ml Carp\Vial) 4 mg IV NOW STA Stop: 08/23/22 07:23 Last Admin: 08/23/22 07:43 Dose: 4 mg Documented By: KYRA Morphine Sulfate (Morphine Sulfate 4 Mg/Ml 1 Ml Carp\Vial) 4 mg IV NOW STA Stop: 08/23/22 09:23 Last Admin: 08/23/22 09:31 Dose: 4 mg Documented By: KYRA Morphine Sulfate (Morphine Sulfate 4 Mg/Ml 1 Ml Carp\Vial) 4 mg IV Q3H PRN PRN Reason: Pain Stop: 09/06/22 09:21 Last Admin: 08/23/22 12:19 Dose: 4 mg Documented By: KYRA Ondansetron HCl (Ondansetron Inj 2 Mg/Ml 2 Ml Vial) 4 mg IV NOW STA Stop: 08/23/22 07:23 Last Admin: 08/23/22 07:43 Dose: 4 mg Documented By: KYRA Medical Decision Making Differential Diagnosis SBO, bowel perforation, diverticulitis, IBD, hernia, appendicitis, cholecystitis, rupture/symptomatic AAA, UTI, nephrolithiasis as well as other pathologies Laboratory Data Attestation: I reviewed the patient's lab results. 08/23/22 07:21 08/23/22 07:21 Lab Results 08/23/22 08/23/22 08/23/22 Range/Units 07:21 07:21 08:02 WBC 14.56 H (4.8-10.8) K/ul RBC 5.52 (4.70-6.10) M/uL Hgb 16.4 (14.0-18.0) g/dl Hct 47.6 (42.0-52.0) % MCV 86.2 (80.0-100.0) fL MCH 29.7 (25.0-34.0) pg MCHC 34.5 (32.0-36.0) g/dL RDW Std Deviation 40.2 (36.4-46.3) fL RDW Coeff of [place] 12.9 (11.5-14.5) % Plt Count 305 (130-400) K/uL MPV 10.5 (9.4-12.4) fL Immature Gran % (Auto) 0.3 % Neut % (Auto) 80.0 % Lymph % (Auto) 14.8 % [place] % (Auto) 4.5 % Eos % (Auto) 0.3 % Baso % (Auto) 0.1 % Neut # (Auto) 11.62 H (1.40-6.50) K/uL Lymph # (Auto) 2.16 (1.2-3.4) K/uL [place] # (Auto) 0.66 H (0.11-0.59) K/uL Eos # (Auto) 0.05 (0-0.50) K/uL Baso # (Auto) 0.02 (0-0.2) K/uL Immature Gran # (Auto) 0.05 (0.01-0.20) K/uL Sodium 137 (136-145) mmol/L Potassium 3.8 (3.5-5.1) mmol/L Chloride 101 (98-107) mmol/L Carbon Dioxide 25 (21-32) mmol/L Anion Gap 11 (3-11) BUN 16 (6-23) mg/dl Creatinine 0.98 (0.6-1.4) mg/dl Est Cr Clr Drug Dosing 76.8 ml/min Est GFR ( Amer) 90.2 ml/min Est GFR (Non-Af Amer) 77.8 ml/min BUN/Creatinine Ratio 16.3 (10-20) Glucose 151 H (70-99(Fasting)) mg/dl Lactate 1.8 (0.4-2.0) mmol/L Calcium 10.1 (8.5-10.1) mg/dl Total Bilirubin 1.6 H (0.2-1.0) mg/dl AST 18 (13-39) U/L ALT 41 (7-52) U/L Alkaline Phosphatase 61 (34-104) U/L Total Protein 7.9 (6.0-8.3) gm/dl Albumin 5.1 H (3.4-5.0) gm/dl Globulin 2.8 (2.5-4.0) gm/dl Albumin/Globulin Ratio 1.8 (0.9-2) Lipase 42 (11-82) U/L Urine Color Urine Appearance (Clear) Urine pH (4.5-7.5) Ur Specific [place] (1.000-1.030) Urine Protein (Negative) Urine Glucose (UA) (Negative) Urine Ketones (Negative) Urine Blood (Negative) Urine Nitrite (Negative) Urine Bilirubin (Negative) Urine Urobilinogen (Negative) Ur Leukocyte Esterase (Negative) SARS-CoV-2 (PCR) (Negative) 08/23/22 08/23/22 Range/Units 08:44 09:30 WBC (4.8-10.8) K/ul RBC (4.70-6.10) M/uL Hgb (14.0-18.0) g/dl Hct (42.0-52.0) % MCV (80.0-100.0) fL MCH (25.0-34.0) pg MCHC (32.0-36.0) g/dL RDW Std Deviation (36.4-46.3) fL RDW Coeff of Cierra (11.5-14.5) % Plt Count (130-400) K/uL MPV (9.4-12.4) fL Immature Gran % (Auto) % Neut % (Auto) % Lymph % (Auto) % [place] % (Auto) % Eos % (Auto) % Baso % (Auto) % Neut # (Auto) (1.40-6.50) K/uL Lymph # (Auto) (1.2-3.4) K/uL [place] # (Auto) (0.11-0.59) K/uL Eos # (Auto) (0-0.50) K/uL Baso # (Auto) (0-0.2) K/uL Immature Gran # (Auto) (0.01-0.20) K/uL Sodium (136-145) mmol/L Potassium (3.5-5.1) mmol/L Chloride (98-107) mmol/L Carbon Dioxide (21-32) mmol/L Anion Gap (3-11) BUN (6-23) mg/dl Creatinine (0.6-1.4) mg/dl Est Cr Clr Drug Dosing ml/min Est GFR ( Amer) ml/min Est GFR (Non-Af Amer) ml/min BUN/Creatinine Ratio (10-20) Glucose (70-99(Fasting)) mg/dl Lactate (0.4-2.0) mmol/L Calcium (8.5-10.1) mg/dl Total Bilirubin (0.2-1.0) mg/dl AST (13-39) U/L ALT (7-52) U/L Alkaline Phosphatase (34-104) U/L Total Protein (6.0-8.3) gm/dl Albumin (3.4-5.0) gm/dl Globulin (2.5-4.0) gm/dl Albumin/Globulin Ratio (0.9-2) Lipase (11-82) U/L Urine Color Yellow Urine Appearance Clear (Clear) Urine pH 8.5 H (4.5-7.5) Ur Specific [place] 1.021 (1.000-1.030) Urine Protein Negative (Negative) Urine Glucose (UA) Negative (Negative) Urine Ketones Trace H (Negative) Urine Blood Negative (Negative) Urine Nitrite Negative (Negative) Urine Bilirubin Negative (Negative) Urine Urobilinogen Negative (Negative) Ur Leukocyte Esterase Negative (Negative) SARS-CoV-2 (PCR) NEGATIVE (Negative) Imaging Data Radiologist's Impression: Abdomen/Pelvis CT 08/23/22 07:22 CT abd pelvis IV con only CLINICAL HISTORY: periumbilical abd pain TECHNIQUE: Helical axial images of the abdomen and pelvis were obtained and displayed. Automated dose lowering techniques and/or adjustment according to patient size were utilized for this exam. This exam was performed with intravenous contrast. CT DOSE: 887.11 mGycm COMPARISON: None available at the time of this dictation. FINDINGS: Lower chest: Mitral annular calcifications are partially visualized. Liver: Unremarkable. No focal lesions are seen. Gallbladder and biliary tree: No calcified gallstones. Normal caliber wall. No intra- or extrahepatic biliary ductal dilation. Pancreas: Unremarkable, no focal lesions. Spleen: Splenic cyst measures 17 mm in diameter. Adrenals: Unremarkable. Kidneys and ureters: Bilateral renal cysts are seen. Bladder: Diffuse homogeneous wall thickening is seen. Reproductive organs: Prostatomegaly is seen. Bowel: Extensive diverticulosis is seen. The appendix is normal.. A small hiatal hernia is seen. Numerous dilated loops of small bowel measure up to 38 mm in diameter. Proximal and distal transition points are seen with underdistention of the distal small bowel and colon. Lymph nodes Retroperitoneal: Unremarkable. Pelvic: Unremarkable. Mesenteric: Unremarkable. Peritoneum: A small amount of free fluid is seen most prominently in the pelvis. Vessels: Atherosclerotic calcifications are seen. Abdominal wall: A fat-containing umbilical hernia is seen. Hernia repair mesh is noted. Right fat-containing umbilical hernia is seen. Bones: Degenerative changes in the visualized spine. IMPRESSION: Closed-loop obstruction of the small bowel is seen with underdistention of the distal bowel. No evidence of perforation or suggestion of wall ischemia. ACT 112: Negative or not required by law. Electronically signed by: Pastor Blank M.D. 08/23/2022 9:10 AM MDM Narrative 72 year old male who presents to ED today with c/o acute onset periumbilical abdominal pain. Review of pertinent visits and patient history performed. Vital signs in ED demonstrate hypertensive otherwise within normal limits, afebrile. Labs obtained and demonstrate leukocytosis 14. No evidence of anemia or electrolyte abnormalities. Lactate 1.8. LFTs and Lipase within normal limits. Urinalysis without evidence of infection or blood. CT abd/pelvis personally reviewed as well as interpreted by radiology and demonstrates closed loop SBO without evidence of perforation or wall ischemia. Clinically, patient is nontoxic appearing, in mild distress secondary to pain. He was treated with IV morphine, zofran and fluids within improvement in symptoms. Patient did require 2nd dose of morphine for pain control while in ED. All exam findings and test results were discussed with patient. Given findings of SBO, I recommended admission to hospital for further management. Patient verbalized understanding and is agreeable to this plan. Case was discussed with hospitalist, Estefani Duff PA-C who graciously accepted patient to their service. He was admitted in stable condition. Impression & Plan Complete obstruction of small intestine, Periumbilical abdominal pain Discharge Plan Visit Data Chief Complaint: Abdominal Pain Stated Complaint: ABDOMINAL PAIN,NAUSEA ED Provider: Santino Madrigal ED Midlevel Provider: Kalpana Jacobsen Discharge Problem: Complete obstruction of small intestine, Periumbilical abdominal pain Condition: Good Discharge Instructions Interventions: ED Discharge Assessment Last Done: 08/23/22 13:42
[2022-08-23 07:55] LABS: Basophils # (auto) 0.02 K/uL (0-0.2); Basophils % (auto) 0.1 %; Eosinophils # (auto) 0.05 K/uL (0-0.50); Eosinophils % (auto) 0.3 %; Hematocrit (blood only) 47.6 % (42.0-52.0); Hemoglobin 16.4 g/dl (14.0-18.0); Immature Granulocytes # (auto) 0.05 K/uL (0.01-0.20); Immature Granulocytes % (auto) 0.3 %; Lymphocytes # (auto) 2.16 K/uL (1.2-3.4); Lymphocytes % (auto) 14.8 %; Mean Corpuscular Hemoglobin 29.7 pg (25.0-34.0); Mean Corpuscular Hgb Conc 34.5 g/dL (32.0-36.0); Mean Corpuscular Volume 86.2 fL (80.0-100.0); Mean Platelet Volume 10.5 fL (9.4-12.4); Monocytes # (auto) 0.66 K/uL (0.11-0.59); Monocytes % (auto) 4.5 %; Neutrophils # (auto) 11.62 K/uL (1.40-6.50); Platelet Count 305 K/uL (130-400); RDW Coefficient of Variation 12.9 % (11.5-14.5); RDW Standard Deviation 40.2 fL (36.4-46.3); Red Blood Count 5.52 M/uL (4.70-6.10); White Blood Count 14.56 K/ul (4.8-10.8)
[2022-08-23 08:04] LABS: Albumin Globulin Ratio 1.8 (0.9-2); Albumin Level 5.1 gm/dl (3.4-5.0); BUN Creatinine Ratio 16.3 (10-20); Bilirubin,Total 1.6 mg/dl (0.2-1.0); Calcium 10.1 mg/dl (8.5-10.1); Creatinine Clr Calc Pharmacy 76.8 ml/min; Est GFR (African American) 90.2 ml/min; Est GFR (Non-African American) 77.8 ml/min; Globulin 2.8 gm/dl (2.5-4.0); Potassium 3.8 mmol/L (3.5-5.1); Total Protein 7.9 gm/dl (6.0-8.3)
[2022-08-23] MEDS ORDERED: OPTIRAY 350 100ml IV ONE (08:41)
[2022-08-23 09:10] LABS: Appearance Urine Clear (Clear); Bilirubin Urine Negative (Negative); Blood Urine Negative (Negative); Color Urine Yellow; Glucose Urine UA Negative (Negative); Ketones Urine Trace (Negative); Leukocyte Esterase Urine Negative (Negative); Nitrite Urine Negative (Negative); Protein Urine Negative (Negative); Specific Gravity Urine 1.021 (1.000-1.030); Urobilinogen Urine Negative (Negative); pH Urine 8.5 (4.5-7.5)
--- NOTE | 2022-08-23 09:12 | CT Scan Report ---
CT abd pelvis IV con only CLINICAL HISTORY: periumbilical abd pain TECHNIQUE: Helical axial images of the abdomen and pelvis were obtained and displayed. Automated dose lowering techniques and/or adjustment according to patient size were utilized for this exam. This e xam was performed with intravenous contrast. CT DOSE: 887.11 mGycm COMPARISON: None available at the time of this dictation. FINDINGS: Lower chest: Mitral annular calcifications are partially visualized. Liver: Unremarkable. No focal lesions are seen. Gallbladder and biliary tree: No calcified gallstones. Normal caliber wall. No intra- or extrahepatic biliary ductal dilation. Pancreas: Unremarkable, no focal lesions. Spleen: Splenic cyst measures 17 mm in diameter. Adrenals: Unremarkable. Kidneys and ureters: Bilateral renal cysts are seen. Bladder: Diffuse homogeneous wall thickening is seen. Reproductive organs: Prostatomegaly is seen. Bowel: Extensive diverticulosis is seen. The appendix is normal.. A small hiatal hernia is seen. Nume gavino dilated loops of small bowel measure up to 38 mm in diameter. Proximal and distal transition poi nts are seen with underdistention of the distal small bowel and colon. Lymph nodes Retroperitoneal: Unremarkable. Pelvic: Unremarkable. Mesenteric: Unremarkable. Peritoneum: A small amount of free fluid is seen most prominently in the pelvis. Vessels: Atherosclerotic calcifications are seen. Abdominal wall: A fat-containing umbilical hernia is seen. Hernia repair mesh is noted. Right fat-con taining umbilical hernia is seen. Bones: Degenerative changes in the visualized spine. IMPRESSION: Closed-loop obstruction of the small bowel is seen with underdistention of the distal bowel. No evide nce of perforation or suggestion of wall ischemia. ACT 112: Negative or not required by law. Electronically signed by: Pastor Blank M.D. 08/23/2022 9:10 AM
[2022-08-23] MEDS ORDERED: MoRPHine SULFATE 4 MG/ML 1 ML CARP\\VIAL IV PRN ×2 (09:22→14:16)
--- NOTE | 2022-08-23 09:45 | History & Physical Report ---
Date of Service August 23, 2022 Assessment & Plan (1) Small bowel obstruction: Plan: - Admit to med surg with tele - Will trial conservative treatment with IV fluids, n.p.o., pain control -General surgery consulted for if needs for any surgical indications -Patient denies nausea, if worsening then will place NG tube - History of umbilical hernia surgery 3.5 years ago, no other abdominal surgeries, suspect possible stricture -CT abdomen reviewed showing closed loop obstruction of the SBO- no evidence of perforation or wall ischemia (2) Hypertension: Plan: - Will hold po lisinopril 40 mg daily and metoprolol 50 mg BID for now with strict NPO, give IV labetalol now for BP 188/84 and will dose q8H while NPO status. 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: Plan: - Following with cardiology closely, was seen outpatient yesterday on 08/22 where metoprolol was titrated up, resume once able - Last Echo from most recent admission was reviewed showing abnormal stress with with valsalva maneuver personally (6) Prediabetes: Plan: - Hx of such, encourage diet and exercise DVT ppx: -teds, scds CODE: Full Dispo: From home, likely to remain in the hospital x 1-2 days A total of 76 minutes were spent with greater than 50% of that time face to face with the patient, personally reviewing all current laboratories, imaging studies, past medication reconciliation, outpatient chart review, and discussion with specialists to collaborate care for the patient with attending. Please see attending documentation for corrections and/or additions. History of Present Illness Chief Complaint: Abdominal Pain Primary Care Provider: Owen Tanner This is a 72-year-old male with PMH HTN, HLD, prediabetes, bifascicular block, BPH who presents with acute onset of abdominal pain He states one month ago had abdominal pain which worsened to cramping and thought that he had food poisoning. This again occurred Monday night where he became nauseated with central abdominal pain, which seemed to wax and wane. He forced himself to throw up which seemed to improve his abdominal pain, but at that point did not think this was again food poisoning. Pt ate two hamburgers for lunch and an orange last night for dinner. He is having regular bowel moveme nts with the last one yesterday night, without blood or other notable changes. He has been using miralax once daily. Pt notes hx of umbilical hernia repair with mesh about 3.5 years ago but has not had any issues since then. He has not had any other abdominal surgeries. Pt saw his box brander yesterday at [facility], and metoprolol was titrated up to 50 mg BID but did not get to take any medications today due to nausea. He was supposed to have a prostate biopsy today so started a prophylactic dose of Cipro 500 mg last evening, but did not take the second capsule this morning due to nausea. His , Cintia, is present with him at bedside and helps supports the history. He did not take any of his other morning medications secondary to abdominal discomfort. Allergies Allergy/AdvReac Type Severity Reaction Status Date / Time No Known Allergies Allergy Verified 06/23/22 09:05 Home Medications Medication Instructions Recorded Confirmed Type atorvastatin 20 mg tablet 20 mg PO QAM 07/21/19 08/23/22 History multivitamin 1 tab PO QAM 07/21/19 08/23/22 History aspirin 81 mg tablet,delayed 81 mg PO QAM 04/13/21 08/23/22 History release (Chani Low Dose Aspirin) lisinopril 40 mg tablet 40 mg PO DAILY 09/24/21 08/23/22 History ciprofloxacin HCl 500 mg tablet 500 mg PO BID #2 tabs 08/22/22 08/23/22 Rx metoprolol tartrate 25 mg tablet 50 mg PO BID 08/23/22 08/23/22 History Past Med/Surg History Medical History (Updated 08/23/22 @ 11:26 by Sherley Duff PA-C) Elevated PSA Hyperlipidemia Hypertension Paroxysmal atrial tachycardia Prediabetes Surgical History (Updated 08/23/22 @ 11:24 by Sherley Duff PA-C) Hx of umbilical hernia repair Family History Brother Heart disease Social History Smoking Status: Never smoker Second Hand Exposure: Yes; Hx Alcohol Use: Yes Alcohol type: wine Hx Substance Use: No Preferred Language: Swedish Communication Ability: Effective Pediatric Oncology Nurse Required: No Beliefs That Will Affect Care: None marital status: Current Living Situation: Spouse current occupational status: employed Feels Safe at Home: Yes Assistive Devices: None Review of Systems Review of Systems: Constitutional: No fever, sweats or chills Eyes: No diplopia, no worsening or blurred vision ENT: normal hearing, no trouble swallowing Respiratory: No cough, sputum, dyspnea at rest or on exertion Cardiovascular: No chest pain, tightness or palpitations Abdomen: As per HPI Musculoskeletal: No joint pain, calf pain, swelling Neurologic: No weakness, numbness/tingling, or balance problems Psychiatric: No anxiety or depression Skin: No rash or itch Physical Exam Physical Exam: General: awake, alert, no apparent distress Head: Normocephalic, atraumatic ENT: PERRL, EOMI, no pharyngeal exudate, mucous membranes moist Chest: Clear to auscultation, on room air, no adventitious breath sounds Cardiac: Regular rate and rhythm, no murmur, no JVD, normal peripheral pulses, good capillary refill Abdominal: Increased BS in upper abdomen, soft, nondistended, epigastric region tender to palpation, no rebound or guarding Extremities: Normal inspection, no peripheral edema or erythema, calfs nontender to palpation Psych: Normal mood and affect Neuro: AAO x 3, strength intact bilaterally and rated 5/5, no motor deficits, speech is clear, no peripheral sensory deficits Results & Data Results & Data ([facility]) Vital Signs (Past 12 Hours) Vital Signs Temp Pulse Resp BP Pulse Ox O2 Del Method O2 Flow Rate 08/23/22 07:48 99 Nasal Cannula 1 08/23/22 07:09 36.4 C L 64 24 188/84 H 99 Room Air Laboratory Results 08/23/22 08/23/22 08/23/22 08:44 08:02 07:21 WBC RBC Hgb Hct MCV MCH MCHC RDW Std Deviation RDW Coeff of Cierra Plt Count MPV Immature Gran % (Auto) Neut % (Auto) Lymph % (Auto) Cassia % (Auto) Eos % (Auto) Baso % (Auto) Neut # (Auto) Lymph # (Auto) Cassia # (Auto) Eos # (Auto) Baso # (Auto) Immature Gran # (Auto) Sodium 137 Potassium 3.8 Chloride 101 Carbon Dioxide 25 Anion Gap 11 BUN 16 Creatinine 0.98 Est Cr Clr Drug Dosing 76.8 Est GFR ( Amer) 90.2 Est GFR (Non-Af Amer) 77.8 BUN/Creatinine Ratio 16.3 Glucose 151 H Lactate 1.8 Calcium 10.1 Total Bilirubin 1.6 H AST 18 ALT 41 Alkaline Phosphatase 61 Total Protein 7.9 Albumin 5.1 H Globulin 2.8 Albumin/Globulin Ratio 1.8 Lipase 42 Urine Color Yellow Urine Appearance Clear Urine pH 8.5 H Ur Specific Beatty 1.021 Urine Protein Negative Urine Glucose (UA) Negative Urine Ketones Trace H Urine Blood Negative Urine Nitrite Negative Urine Bilirubin Negative Urine Urobilinogen Negative Ur Leukocyte Esterase Negative 08/23/22 07:21 WBC 14.56 H RBC 5.52 Hgb 16.4 Hct 47.6 MCV 86.2 MCH 29.7 MCHC 34.5 RDW Std Deviation 40.2 RDW Coeff of Cierra 12.9 Plt Count 305 MPV 10.5 Immature Gran % (Auto) 0.3 Neut % (Auto) 80.0 Lymph % (Auto) 14.8 Cassia % (Auto) 4.5 Eos % (Auto) 0.3 Baso % (Auto) 0.1 Neut # (Auto) 11.62 H Lymph # (Auto) 2.16 Cassia # (Auto) 0.66 H Eos # (Auto) 0.05 Baso # (Auto) 0.02 Immature Gran # (Auto) 0.05 Sodium Potassium Chloride Carbon Dioxide Anion Gap BUN Creatinine Est Cr Clr Drug Dosing Est GFR ( Amer) Est GFR (Non-Af Amer) BUN/Creatinine Ratio Glucose Lactate Calcium Total Bilirubin AST ALT Alkaline Phosphatase Total Protein Albumin Globulin Albumin/Globulin Ratio Lipase Urine Color Urine Appearance Urine pH Ur Specific Beatty Urine Protein Urine Glucose (UA) Urine Ketones Urine Blood Urine Nitrite Urine Bilirubin Urine Urobilinogen Ur Leukocyte Esterase Diagnostic Findings Abdomen/Pelvis CT 08/23/22 07:22 CT abd pelvis IV con only CLINICAL HISTORY: periumbilical abd pain TECHNIQUE: Helical axial images of the abdomen and pelvis were obtained and displayed. Automated dose lowering techniques and/or adjustment according to patient size were utilized for this exam. This exam was performed with intravenous contrast. CT DOSE: 887.11 mGycm COMPARISON: None available at the time of this dictation. FINDINGS: Lower chest: Mitral annular calcifications are partially visualized. Liver: Unremarkable. No focal lesions are seen. Gallbladder and biliary tree: No calcified gallstones. Normal caliber wall. No intra- or extrahepatic biliary ductal dilation. Pancreas: Unremarkable, no focal lesions. Spleen: Splenic cyst measures 17 mm in diameter. Adrenals: Unremarkable. Kidneys and ureters: Bilateral renal cysts are seen. Bladder: Diffuse homogeneous wall thickening is seen. Reproductive organs: Prostatomegaly is seen. Bowel: Extensive diverticulosis is seen. The appendix is normal.. A small hiatal hernia is seen. Numerous dilated loops of small bowel measure up to 38 mm in diameter. Proximal and distal transition points are seen with underdistention of the distal small bowel and colon. Lymph nodes Retroperitoneal: Unremarkable. Pelvic: Unremarkable. Mesenteric: Unremarkable. Peritoneum: A small amount of free fluid is seen most prominently in the pelvis. Vessels: Atherosclerotic calcifications are seen. Abdominal wall: A fat-containing umbilical hernia is seen. Hernia repair mesh is noted. Right fat-containing umbilical hernia is seen. Bones: Degenerative changes in the visualized spine. IMPRESSION: Closed-loop obstruction of the small bowel is seen with underdistention of the distal bowel. No evidence of perforation or suggestion of wall ischemia. ACT 112: Negative or not required by law. Electronically signed by: Pastor Blank M.D. 08/23/2022 9:10 AM Code Status & VTE Plan Code Status Full code - dicussed with the patient at bedside Supervising Physician Co-Signing Physician Notes Pt is a 72 y/o M with hx of HTN, HLD, LVOT obstruction due to ROXANNE (on Metoprolol) admitted for Small bowel obstruction. PE: NAD, well developed Cardiac: normal S1/S2, no murmur Lungs: CTA, no wheezing or crackles Abd: + Guarding, epigastric TTP, increased BS upper abd, normal BS lower abd MSk: no LE edema Psych: AAox3, normal affect A/P: Small bowel obstruction: -CT abd: Closed-loop obstruction of the small bowel is seen with underdistention of the distal bowel. No evidence of perforation or suggestion of wall ischemia. - BP is elevated but normal HR - WBC elevated -no sign of ischemia on image - will keep pt NPO --NS for maintenance fluids - Surgery referral LVOT obstruction due to ROXANNE: -pt is on metoprolol 50mg BID - due to pt being NPO will do IV metoprolol 5mg q8hr - admit to tele will titrate metoprolol dose according to pts HR other chronic conditions: Plan as above Agree with A/P by Sherley Duff PA-C (2) Hypertension Hypertension type: unspecified Qualified Code(s): I10 - Essential (primary) hypertension (3) Hyperlipidemia Hyperlipidemia type: unspecified Qualified Code(s): E78.5 - Hyperlipidemia, unspecified
[2022-08-23] MEDS ORDERED: LABETALOL HCL IV 5 MG/ML 20ML IV STA (11:26)
[2022-08-23] MEDS ORDERED: ACETAMINOPHEN 325 MG TAB PO PRN (14:16)
[2022-08-23] MEDS ORDERED: HYDROmorphone INJ 0.5 MG/0.5 ML SYR IV PRN (14:16)
[2022-08-23] MEDS ORDERED: LABETALOL HCL IV 5 MG/ML 20ML IV PRN (14:16)
[2022-08-23] MEDS ORDERED: ONDANSETRON INJ 2 MG/ML 2 ML VIAL IV PRN (14:16)
--- NOTE | 2022-08-23 15:07 | Surgery Consultation ---
Date of Consultation August 23, 2022 Assessment & Plan (1) Small bowel obstruction: No acute surgical intervention is currently indicated. The patient is non- toxic, afebrile without peritonitis, and his symptoms are resolving. I agree with the initial plan for admission and conservative management. Continue him on IVF, strict NPO. Have a low threshold to insert an NGT should patient have any episodes of nausea, vomiting, abdominal pain or distention. Serial abdominal exams today to closely monitor symptoms as patient's exam is very unimpressive right now and his symptoms seem to be resolving. Ambulate with assistance as tolerated. Mechanical DVT ppx History of Present Illness Reason for Consultation: Abdominal pain, small bowel obstruction Attending Physician: Pavel Beth MD History of Present Illness Patient admitted to medicine from the ED for small bowel obstruction. I was consulted for surgical evaluation. Mr. Arias is a pleasant 72 y/o male with a PMHx of laparoscopic umbilical hernia repair with mesh 3.5 years ago, HTN, prediabetes, HLD, bifascicular block and an enlarged prostate with elevated PSA for which he was scheduled to have a biopsy this am with Dr. Ranjit Medina, who presented to the ED for ongoing abdominal pain that started on Monday. He says on Monday night he started having severe, centralized abdominal pain after having partially melted ice cream for dinner. He was able to force himself to vomit which made him feel better. Pain seemed to resolve overnight and by yesterday am he felt his symptoms were resolved. Yesterday (Monday) morning, he was able to have a bowl of shredded wheat for breakfast and two hamburgers for lunch at 3pm. After lunch he says he felt some twinges, but no pain and he thought this was just some residual irritation from the night before. For dinner last night he had two oranges and started having severe abdominal pain about an hour later. He describes the pain as excruciating with occasional brief periods of waning but pretty persistent all night. He did try to make himself vomit again but this was unsuccessful. He says he did have a normal bowel movement last night but does not note passing flatus and continues to deny passing flatus now. He says belching has helped give some small intermittent relief as well as walking ar ound to help his bowels move around. Mr. Arias denies fevers, states one episode of chills yesterday. Denies bloody stools, change in bowel habits, chest pain, shortness of breath, coughing, sputum production, burning with urination and blood in his urine. Nathan says he did have this happen about 1 month ago at which time he thought he ate some bad fish. Same exact symptoms that lasted less than about 24 hours and resolved on their own. The patient did receive pain medication an hour prior to my seeing him but he thinks he is having resolution of symptoms. He currently denies nausea and has minimal abdominal discomfort. Mr. Arias is concerned about recurrence as this happened just a month ago and he is scheduled to go out of the country to [place] this summer. He denies any FHX of colon cancer, small bowel cancers, UC and Crohn's disease. He has never had a colonoscopy but had a negative Cologuard about a year ago, due at year 3. Allergies Allergy/AdvReac Type Severity Reaction Status Date / Time No Known Allergies Allergy Verified 06/23/22 09:05 Home Medications Medication Instructions Recorded Confirmed Type atorvastatin 20 mg tablet 20 mg PO QAM 07/21/19 08/23/22 History multivitamin 1 tab PO QAM 07/21/19 08/23/22 History aspirin 81 mg tablet,delayed 81 mg PO QAM 04/13/21 08/23/22 History release (Chani Low Dose Aspirin) lisinopril 40 mg tablet 40 mg PO DAILY 09/24/21 08/23/22 History ciprofloxacin HCl 500 mg tablet 500 mg PO BID #2 tabs 08/22/22 08/23/22 Rx metoprolol tartrate 25 mg tablet 50 mg PO BID 08/23/22 08/23/22 History Patient History Medical History (Updated 08/23/22 @ 11:26 by Sherley Duff PA-C) Elevated PSA Hyperlipidemia Hypertension Paroxysmal atrial tachycardia Prediabetes Surgical History (Updated 08/23/22 @ 11:24 by Sherley Duff PA-C) Hx of umbilical hernia repair Family History Brother Heart disease Social History (Updated 08/23/22 @ 14:45 by Chantell Mondragon DO) Smoking Status: Former smoker Age Started Using Tobacco: 12; Age Quit Using Tobacco: 20; packs per day: 1; Second Hand Exposure: Yes; Hx Alcohol Use: Yes Alcohol type: wine Hx Substance Use: No Preferred Language: Slovak Communication Ability: Effective General Internist And Physician Leader Required: No Beliefs That Will Affect Care: None marital status: Current Living Situation: Spouse current occupational status: employed Feels Safe at Home: Yes Assistive Devices: None Review of Systems Constitutional: no fever, no chills, no sweats, no fatigue and no weakness Respiratory: no cough, no chest congestion, no dyspnea, no hemoptysis, no pain on inspiration, no sputum production and no wheezing Cardiovascular: no chest pain, no chest pain with activity, no dyspnea on exertion, no orthopnea, no palpitations, no lightheadedness, no syncope and no edema Gastrointestinal: + abdominal pain (mild) and + belching (minimal); no bloating, no nausea, no vomiting, no change in stools and no blood in stools Physical Exam Constitutional: + thin and cooperative; no acute distress, not ill appearing, not cachectic, no altered mental status, not frail appearing, not diaphoretic, not lethargic and not edematous Respiratory: normal respiratory effort; no respiratory distress, no labored breathing, does not use accessory muscles, no cough, not tachypneic, no audible wheezes, no nasal flaring and no pursed lip breathing Auscultation: lungs clear to auscultation bilaterally; no crackles, no rales, no rhonchi and no wheezes Gastrointestinal (Abdomen): Inspection/Auscultation: abdomen normal to inspection (wine colored juan at right flank), + abdominal surgical scar (well healed laparoscopic incisions at the outsides of the abdomen), + high- pitched sounds and + hyperactive bowel sounds; abdomen not distended and no abdominal edema Percussion/Palpation: + abdomen tender (minimally TTP left abdomen), abdomen soft and + hernia (umbilical hernia present); no guarding, abdomen not rigid, no fluid wave and abdomen not firm Results & Data ([facility]) Vital Signs (Past 12 Hours) Vital Signs Temp Pulse Resp BP Pulse Ox O2 Del Method O2 Flow Rate 08/23/22 13:42 36.8 C 74 18 130/74 95 Room Air 08/23/22 11:10 57 L 08/23/22 07:48 99 Nasal Cannula 1 08/23/22 07:09 36.4 C L 64 24 188/84 H 99 Room Air Laboratory Results WBC: 14.56 H/H 13.5/39 Neut: 11.62 BMP WNL T.Bili 1.6 Lactic Acid 1.8 COVID (-) Diagnostic Findings CT of the abdomen and pelvis with IV contrast is suspicious for a closed loop bowel obstruction noting two transition points with no evidence for bowel ischemia or free air, small amount of free fluid in the pelvis Incidental: Fat containing umbilical hernia, question a right inguinal hernia, b/l renal cysts, a17mm splenic cyst, diffuse homogenous wall thickening of the bladder, prostatomegaly, and atherosclerosis. Coding Level of Care Code 09684 INT INP/OBS CARE 2/55MIN History Detailed Exam Expanded Problem Focused Medical Decision Making Low Complexity Diagnoses Small bowel obstruction K56.609
[2022-08-23] MEDS: D5W AND NSS 1,000 ML IV SCH (19:15)
--- NOTE | 2022-08-23 19:39 | Communication Note ---
Date of Service: August 23, 2022 This is a 72-year-old male who was admitted with small bowel obstruction and on CT scan there is concern for a closed-loop obstruction. Patient was signed out to me by dayshift team. The patient was seen and examined at the bedside this evening. The patient denies any nausea or vomiting and he denies any worsening abdominal pain. He denies any fevers, shakes, or chills. He has not passed any flatus or had bowel movement since admission. On exam the patient's abdomen is soft and nonrigid. It is nondistended. There is minimal pain with palpation and there is no rebound tenderness or guarding. I did discuss with the patient that if he has clinical deterioration such as a worsening abdominal exam, worsening abdominal pain, or nausea and vomiting he may require NG tube placement. We will continue conservative management and close clinical monitoring for the present time.
[2022-08-23] MEDS: MoRPHine SULFATE 2 MG/ML CARP IV PRN ×2 (19:40→23:30)
--- NOTE | 2022-08-24 00:25 | Communication Note ---
Date of Service: August 24, 2022 Patient was revisited at bedside. He did note an episode of slight worsening abdominal pain approximately 2 hours ago. He notes that he was given some Ty lenol for this problem which helped alleviate the problem. At the present time he is currently comfortable and he has not had any nausea or vomiting. He also notes that he has yet to pass any flatus or have a bowel movement since admission. Vital signs show the patient is normotensive without tachycardia. He is also afebrile. On exam his abdomen is soft and nonrigid. There is no rebound tenderness or guarding. Patient does have some minor pain with palpation greatest on the left side of his abdomen just lateral to his umbilicus. I discussed with the nurse attending to the patient she did not voice any concerns at this time. We will continue close clinical monitoring at this time.
[2022-08-24] MEDS: D5W AND NSS 1,000 ML IV SCH ×3 (04:49→23:38)
[2022-08-24] MEDS: MoRPHine SULFATE 2 MG/ML CARP IV PRN ×2 (04:49→09:01)
--- NOTE | 2022-08-24 06:24 | Communication Note ---
Date of Service: August 24, 2022 Patient revisited at bedside this morning. He denies any worsening abdominal pain. No nausea or vomiting noted. He does note that since my most recent v isit last night he began passing flatus but no bowel movement. Vital signs reviewed and he is normotensive without tachycardia or fever. Abdominal exam remains unchanged that is soft and nonrigid. There is minimal pain at the time of my exam.
[2022-08-24 07:02] LABS: Hematocrit (blood only) 38.1 % (42.0-52.0); Hemoglobin 13.1 g/dl (14.0-18.0); Mean Corpuscular Hemoglobin 30.3 pg (25.0-34.0); Mean Corpuscular Hgb Conc 34.4 g/dL (32.0-36.0); Mean Corpuscular Volume 88.2 fL (80.0-100.0); Mean Platelet Volume 10.4 fL (9.4-12.4); Platelet Count 212 K/uL (130-400); RDW Standard Deviation 42.1 fL (36.4-46.3); Red Blood Count 4.32 M/uL (4.70-6.10); White Blood Count 6.84 K/ul (4.8-10.8)
[2022-08-24 07:04] LABS: BUN Creatinine Ratio 13.8 (10-20); Calcium 8.6 mg/dl (8.5-10.1); Creatinine Clr Calc Pharmacy 80.1 ml/min; Est GFR (African American) 94.8 ml/min; Est GFR (Non-African American) 81.8 ml/min; Potassium 3.9 mmol/L (3.5-5.1)
[2022-08-24] MEDS: ACETAMINOPHEN 1,000 MG/100 ML VIAL IV SCH ×2 (09:18→16:40)
--- NOTE | 2022-08-24 10:47 | Hospitalist Progress Note ---
Date of Service August 24, 2022 Assessment & Plan (1) Small bowel obstruction: Plan: -Patient presented with abdominal pain, nausea. -CT abdomen and pelvis on admission showed closed-loop obstruction of the small bowel. No evidence of perforation or suggestion of wall ischemia. -Hemodynamically stable; no leukocytosis. General surgery evaluated the patient; recommend conservative management with IV fluids, n.p.o. and pain control. -Scheduled Tylenol for pain control; will try to minimize opioids. 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 He reports continued abdominal pain in left lower quadrant. He denies any nausea or vomiting at present time. He reports that he is passing flatus. Review of Systems Review of Systems: All systems reviewed & are unremarkable except as noted in Subjective Physical Exam Physical Exam: Constitutional: Alert orient x3; in mild significant distress due to pain. Head: Normocephalic, Atraumatic Eyes: PERRL, conjunctivae normal, anicteric sclerae ENMT: external ear and nose normal, oropharynx normal Neck: trachea midline, no thyromegaly normal visual inspection Respiratory: normal respiratory effort, lungs clear to auscultation, no wheeze, rales, rhonchi. Normal insp/exp effort, no accessory muscle use Cardiovascular: RRR, no murmur, no edema Vessels: no JVD or carotid bruit Chest: normal inspection of chest Abdomen: Soft, tenderness present in left lower quadrant. Bowel sounds hyperactive. Musculoskeletal: no cyanosis or clubbing, extremities motor strength 5/5 Skin: no rashes, warm and dry normal turgor Neurologic: PERRL, EOMI, accommodation nl, no face palsy, no dysarthria CN's II- XI intact bilaterally and moves all extremities Psychiatric: A+Ox3, euthymic affect Lymphatic: no cervical or axillary lymphadenopathy : deferred Results & Data Results & Data Vital Signs (Past 12 Hours) Vital Signs Temp Pulse Pulse Resp BP Pulse Ox O2 Del Method 08/24/22 07:47 36.7 C 62 18 124/69 97 Room Air 08/24/22 07:30 55 L 08/24/22 03:02 36.6 C 61 19 120/67 95 Room Air 08/23/22 23:52 56 L 08/23/22 23:52 36.6 C 58 L 19 139/79 96 Room Air Laboratory Results Laboratory Results WBC 6.84 K/ul (4.8-10.8) 08/24/22 06:16 RBC 4.32 M/uL (4.70-6.10) L 08/24/22 06:16 Hgb 13.1 g/dl (14.0-18.0) L D 08/24/22 06:16 Hct 38.1 % (42.0-52.0) L 08/24/22 06:16 MCV 88.2 fL (80.0-100.0) 08/24/22 06:16 MCH 30.3 pg (25.0-34.0) 08/24/22 06:16 MCHC 34.4 g/dL (32.0-36.0) 08/24/22 06:16 RDW Std Deviation 42.1 fL (36.4-46.3) 08/24/22 06:16 RDW Coeff of Cierra 13.0 % (11.5-14.5) 08/24/22 06:16 Plt Count 212 K/uL (130-400) 08/24/22 06:16 MPV 10.4 fL (9.4-12.4) 08/24/22 06:16 Immature Gran % (Auto) 0.3 % 08/23/22 07:21 Neut % (Auto) 80.0 % 08/23/22 07:21 Lymph % (Auto) 14.8 % 08/23/22 07:21 [place] % (Auto) 4.5 % 08/23/22 07:21 Eos % (Auto) 0.3 % 08/23/22 07:21 Baso % (Auto) 0.1 % 08/23/22 07:21 Neut # (Auto) 11.62 K/uL (1.40-6.50) H 08/23/22 07:21 Lymph # (Auto) 2.16 K/uL (1.2-3.4) 08/23/22 07:21 [place] # (Auto) 0.66 K/uL (0.11-0.59) H 08/23/22 07:21 Eos # (Auto) 0.05 K/uL (0-0.50) 08/23/22 07:21 Baso # (Auto) 0.02 K/uL (0-0.2) 08/23/22 07:21 Immature Gran # (Auto) 0.05 K/uL (0.01-0.20) 08/23/22 07:21 Sodium 140 mmol/L (136-145) 08/24/22 06:16 Potassium 3.9 mmol/L (3.5-5.1) 08/24/22 06:16 Chloride 106 mmol/L (98-107) 08/24/22 06:16 Carbon Dioxide 29 mmol/L (21-32) 08/24/22 06:16 Anion Gap 5 (3-11) 08/24/22 06:16 BUN 13 mg/dl (6-23) 08/24/22 06:16 Creatinine 0.94 mg/dl (0.6-1.4) 08/24/22 06:16 Est Cr Clr Drug Dosing 80.1 ml/min 08/24/22 06:16 Est GFR ( Amer) 94.8 ml/min 08/24/22 06:16 Est GFR (Non-Af Amer) 81.8 ml/min 08/24/22 06:16 BUN/Creatinine Ratio 13.8 (10-20) 08/24/22 06:16 Glucose 127 mg/dl (70-99(Fasting)) H 08/24/22 06:16 Lactate 1.8 mmol/L (0.4-2.0) 08/23/22 08:02 Calcium 8.6 mg/dl (8.5-10.1) 08/24/22 06:16 Total Bilirubin 1.6 mg/dl (0.2-1.0) H 08/23/22 07:21 AST 18 U/L (13-39) 08/23/22 07:21 ALT 41 U/L (7-52) 08/23/22 07:21 Alkaline Phosphatase 61 U/L (34-104) 08/23/22 07:21 Total Protein 7.9 gm/dl (6.0-8.3) 08/23/22 07:21 Albumin 5.1 gm/dl (3.4-5.0) H 08/23/22 07:21 Globulin 2.8 gm/dl (2.5-4.0) 08/23/22 07:21 Albumin/Globulin Ratio 1.8 (0.9-2) 08/23/22 07:21 Lipase 42 U/L (11-82) 08/23/22 07:21 Urine Color Yellow 08/23/22 08:44 Urine Appearance Clear (Clear) 08/23/22 08:44 Urine pH 8.5 (4.5-7.5) H 08/23/22 08:44 Ur Specific [place] 1.021 (1.000-1.030) 08/23/22 08:44 Urine Protein Negative (Negative) 08/23/22 08:44 Urine Glucose (UA) Negative (Negative) 08/23/22 08:44 Urine Ketones Trace (Negative) H 08/23/22 08:44 Urine Blood Negative (Negative) 08/23/22 08:44 Urine Nitrite Negative (Negative) 08/23/22 08:44 Urine Bilirubin Negative (Negative) 08/23/22 08:44 Urine Urobilinogen Negative (Negative) 08/23/22 08:44 Ur Leukocyte Esterase Negative (Negative) 08/23/22 08:44 SARS-CoV-2 (PCR) NEGATIVE (Negative) 08/23/22 09:30 Impressions Abdomen/Pelvis CT 08/23/22 07:22 CT abd pelvis IV con only CLINICAL HISTORY: periumbilical abd pain TECHNIQUE: Helical axial images of the abdomen and pelvis were obtained and displayed. Automated dose lowering techniques and/or adjustment according to patient size were utilized for this exam. This exam was performed with intravenous contrast. CT DOSE: 887.11 mGycm COMPARISON: None available at the time of this dictation. FINDINGS: Lower chest: Mitral annular calcifications are partially visualized. Liver: Unremarkable. No focal lesions are seen. Gallbladder and biliary tree: No calcified gallstones. Normal caliber wall. No intra- or extrahepatic biliary ductal dilation. Pancreas: Unremarkable, no focal lesions. Spleen: Splenic cyst measures 17 mm in diameter. Adrenals: Unremarkable. Kidneys and ureters: Bilateral renal cysts are seen. Bladder: Diffuse homogeneous wall thickening is seen. Reproductive organs: Prostatomegaly is seen. Bowel: Extensive diverticulosis is seen. The appendix is normal.. A small hiatal hernia is seen. Numerous dilated loops of small bowel measure up to 38 mm in diameter. Proximal and distal transition points are seen with underdistention of the distal small bowel and colon. Lymph nodes Retroperitoneal: Unremarkable. Pelvic: Unremarkable. Mesenteric: Unremarkable. Peritoneum: A small amount of free fluid is seen most prominently in the pelvis. Vessels: Atherosclerotic calcifications are seen. Abdominal wall: A fat-containing umbilical hernia is seen. Hernia repair mesh is noted. Right fat-containing umbilical hernia is seen. Bones: Degenerative changes in the visualized spine. IMPRESSION: Closed-loop obstruction of the small bowel is seen with underdistention of the distal bowel. No evidence of perforation or suggestion of wall ischemia. ACT 112: Negative or not required by law. Electronically signed by: Pastor Blank M.D. 08/23/2022 9:10 AM (2) Hypertension Hypertension type: unspecified Qualified Code(s): I10 - Essential (primary) hypertension (3) Hyperlipidemia Hyperlipidemia type: unspecified Qualified Code(s): E78.5 - Hyperlipidemia, unspecified
--- NOTE | 2022-08-24 12:08 | Surgery Progress Note ---
I saw this patient with the PA and devised the plan. Date of Service August 24, 2022 Assessment & Plan (1) Small bowel obstruction: Plan: Patient here with concern for SBO WBC 6.8. patient's vital signs are stable abdomen is soft mild discomfort on L side currently denies nausea/pain. He is starting to pass flatus..no BM we will continue conservative measures for now with NPO and bowel rest awaiting more meaningful return of bowel function Admission and Anticipated Discharge Date Admission Date: August 23, 2022 Subjective Patient said he is feeling a bit better. He has started passing flatus, no BM thus far. No current nausea. No pain at present, but says it still comes and goes. Physical Exam Physical Exam: awake/alert, walking the halls. in no distress Respiratory: normal respiratory effort Gastrointestinal (Abdomen): Percussion/Palpation: + abdomen tender (mild discomfort on the L side) and abdomen soft Results & Data Vital Signs (Past 12 Hours) Vital Signs Temp Pulse Pulse Resp BP Pulse Ox O2 Del Method 08/24/22 11:30 36.8 C 60 16 131/73 94 Room Air 08/24/22 07:47 36.7 C 62 18 124/69 97 Room Air 08/24/22 07:30 55 L 08/24/22 03:02 36.6 C 61 19 120/67 95 Room Air PG Care Time/CCT Total # of Minutes Spent Total Time Spent with Patient: Total time spent is greater than 50% in coordination of care (as documented) at patient's floor/unit and/or counseling patient: Coding Level of Care Code 11768 SUB INP/OBS CARE 125MIN Diagnoses Small bowel obstruction K56.609
[2022-08-24] MEDS ORDERED: bisacodyL 10 MG SUPP PR PRN (20:59)
[2022-08-25] MEDS: MoRPHine SULFATE 2 MG/ML CARP IV PRN ×2 (00:26→11:33)
[2022-08-25] MEDS: ACETAMINOPHEN 1,000 MG/100 ML VIAL IV SCH ×3 (02:22→19:17)
[2022-08-25 07:47] LABS: Basophils # (auto) 0.02 K/uL (0-0.2); Basophils % (auto) 0.3 %; Eosinophils # (auto) 0.17 K/uL (0-0.50); Eosinophils % (auto) 2.8 %; Hematocrit (blood only) 38.6 % (42.0-52.0); Hemoglobin 13.2 g/dl (14.0-18.0); Immature Granulocytes # (auto) 0.02 K/uL (0.01-0.20); Immature Granulocytes % (auto) 0.3 %; Lymphocytes # (auto) 1.75 K/uL (1.2-3.4); Lymphocytes % (auto) 29.1 %; Mean Corpuscular Hemoglobin 29.7 pg (25.0-34.0); Mean Corpuscular Hgb Conc 34.2 g/dL (32.0-36.0); Mean Corpuscular Volume 86.9 fL (80.0-100.0); Mean Platelet Volume 10.3 fL (9.4-12.4); Monocytes # (auto) 0.44 K/uL (0.11-0.59); Monocytes % (auto) 7.3 %; Neutrophils # (auto) 3.62 K/uL (1.40-6.50); Neutrophils % (auto) 60.2 %; Platelet Count 210 K/uL (130-400); RDW Coefficient of Variation 12.8 % (11.5-14.5); RDW Standard Deviation 40.3 fL (36.4-46.3); Red Blood Count 4.44 M/uL (4.70-6.10); White Blood Count 6.02 K/ul (4.8-10.8)
[2022-08-25 08:05] LABS: BUN Creatinine Ratio 11.1 (10-20); Calcium 8.5 mg/dl (8.5-10.1); Creatinine Clr Calc Pharmacy 92.9 ml/min; Est GFR (African American) 104.4 ml/min; Potassium 3.7 mmol/L (3.5-5.1)
[2022-08-25] MEDS: D5W AND NSS 1,000 ML IV SCH (09:26)
--- NOTE | 2022-08-25 10:47 | Hospitalist Progress Note ---
Date of Service August 25, 2022 Assessment & Plan (1) Small bowel obstruction: Plan: -Patient presented with abdominal pain, nausea. -CT abdomen and pelvis on admission showed closed-loop obstruction of the small bowel. No evidence of perforation or suggestion of wall ischemia. -Hemodynamically stable; no leukocytosis. -Repeat KUB today shows continued small bowel obstruction. General surgery on board; possible exploratory laparoscopy today. Currently on conservative management with IV fluids and pain control. -Scheduled Tylenol for pain control; will try to minimize opioids. 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 He reports continued abdominal pain intermittently. Complains of nausea; no episode of vomiting. Not passing flatus. Review of Systems Review of Systems: All systems reviewed & are unremarkable except as noted in Subjective Physical Exam Physical Exam: Constitutional: Alert orient x3; in mild significant distress due to pain. Respiratory: normal respiratory effort, lungs clear to auscultation, no wheeze, rales, rhonchi. Normal insp/exp effort, no accessory muscle use Cardiovascular: RRR, no murmur, no edema Vessels: no JVD or carotid bruit Chest: normal inspection of chest Abdomen: Soft, tenderness present in left lower quadrant. Bowel sounds hyperactive. Musculoskeletal: no cyanosis or clubbing, extremities motor strength 5/5 Skin: no rashes, warm and dry normal turgor Neurologic: PERRL, EOMI, accommodation nl, no face palsy, no dysarthria CN's II- XI intact bilaterally and moves all extremities Psychiatric: A+Ox3, euthymic affect Lymphatic: no cervical or axillary lymphadenopathy : deferred Results & Data Results & Data Vital Signs (Past 12 Hours) Vital Signs Temp Pulse Pulse Resp BP Pulse Ox O2 Del Method 08/25/22 10:38 60 08/25/22 07:06 36.4 C L 82 16 154/81 H 96 Room Air 08/25/22 03:08 36.7 C 60 19 146/72 H 96 Room Air Laboratory Results Laboratory Results WBC 6.02 K/ul (4.8-10.8) 08/25/22 07:30 RBC 4.44 M/uL (4.70-6.10) L 08/25/22 07:30 Hgb 13.2 g/dl (14.0-18.0) L 08/25/22 07:30 Hct 38.6 % (42.0-52.0) L 08/25/22 07:30 MCV 86.9 fL (80.0-100.0) 08/25/22 07:30 MCH 29.7 pg (25.0-34.0) 08/25/22 07:30 MCHC 34.2 g/dL (32.0-36.0) 08/25/22 07:30 RDW Std Deviation 40.3 fL (36.4-46.3) 08/25/22 07:30 RDW Coeff of Cierra 12.8 % (11.5-14.5) 08/25/22 07:30 Plt Count 210 K/uL (130-400) 08/25/22 07:30 MPV 10.3 fL (9.4-12.4) 08/25/22 07:30 Immature Gran % (Auto) 0.3 % 08/25/22 07:30 Neut % (Auto) 60.2 % 08/25/22 07:30 Lymph % (Auto) 29.1 % 08/25/22 07:30 [place] % (Auto) 7.3 % 08/25/22 07:30 Eos % (Auto) 2.8 % 08/25/22 07:30 Baso % (Auto) 0.3 % 08/25/22 07:30 Neut # (Auto) 3.62 K/uL (1.40-6.50) 08/25/22 07:30 Lymph # (Auto) 1.75 K/uL (1.2-3.4) 08/25/22 07:30 [place] # (Auto) 0.44 K/uL (0.11-0.59) 08/25/22 07:30 Eos # (Auto) 0.17 K/uL (0-0.50) 08/25/22 07:30 Baso # (Auto) 0.02 K/uL (0-0.2) 08/25/22 07:30 Immature Gran # (Auto) 0.02 K/uL (0.01-0.20) 08/25/22 07:30 Sodium 140 mmol/L (136-145) 08/25/22 07:30 Potassium 3.7 mmol/L (3.5-5.1) 08/25/22 07:30 Chloride 107 mmol/L (98-107) 08/25/22 07:30 Carbon Dioxide 28 mmol/L (21-32) 08/25/22 07:30 Anion Gap 5 (3-11) 08/25/22 07:30 BUN 9 mg/dl (6-23) 08/25/22 07:30 Creatinine 0.81 mg/dl (0.6-1.4) 08/25/22 07:30 Est Cr Clr Drug Dosing 92.9 ml/min 08/25/22 07:30 Est GFR ( Amer) 104.4 ml/min 08/25/22 07:30 Est GFR (Non-Af Amer) 90.0 ml/min 08/25/22 07:30 BUN/Creatinine Ratio 11.1 (10-20) 08/25/22 07:30 Glucose 117 mg/dl (70-99(Fasting)) H 08/25/22 07:30 Lactate 1.8 mmol/L (0.4-2.0) 08/23/22 08:02 Calcium 8.5 mg/dl (8.5-10.1) 08/25/22 07:30 Total Bilirubin 1.6 mg/dl (0.2-1.0) H 08/23/22 07:21 AST 18 U/L (13-39) 08/23/22 07:21 ALT 41 U/L (7-52) 08/23/22 07:21 Alkaline Phosphatase 61 U/L (34-104) 08/23/22 07:21 Total Protein 7.9 gm/dl (6.0-8.3) 08/23/22 07:21 Albumin 5.1 gm/dl (3.4-5.0) H 08/23/22 07:21 Globulin 2.8 gm/dl (2.5-4.0) 08/23/22 07:21 Albumin/Globulin Ratio 1.8 (0.9-2) 08/23/22 07:21 Lipase 42 U/L (11-82) 08/23/22 07:21 Urine Color Yellow 08/23/22 08:44 Urine Appearance Clear (Clear) 08/23/22 08:44 Urine pH 8.5 (4.5-7.5) H 08/23/22 08:44 Ur Specific [place] 1.021 (1.000-1.030) 08/23/22 08:44 Urine Protein Negative (Negative) 08/23/22 08:44 Urine Glucose (UA) Negative (Negative) 08/23/22 08:44 Urine Ketones Trace (Negative) H 08/23/22 08:44 Urine Blood Negative (Negative) 08/23/22 08:44 Urine Nitrite Negative (Negative) 08/23/22 08:44 Urine Bilirubin Negative (Negative) 08/23/22 08:44 Urine Urobilinogen Negative (Negative) 08/23/22 08:44 Ur Leukocyte Esterase Negative (Negative) 08/23/22 08:44 SARS-CoV-2 (PCR) NEGATIVE (Negative) 08/23/22 09:30 Impressions Abdomen/Pelvis CT 08/23/22 07:22 CT abd pelvis IV con only CLINICAL HISTORY: periumbilical abd pain TECHNIQUE: Helical axial images of the abdomen and pelvis were obtained and displayed. Automated dose lowering techniques and/or adjustment according to patient size were utilized for this exam. This exam was performed with intravenous contrast. CT DOSE: 887.11 mGycm COMPARISON: None available at the time of this dictation. FINDINGS: Lower chest: Mitral annular calcifications are partially visualized. Liver: Unremarkable. No focal lesions are seen. Gallbladder and biliary tree: No calcified gallstones. Normal caliber wall. No intra- or extrahepatic biliary ductal dilation. Pancreas: Unremarkable, no focal lesions. Spleen: Splenic cyst measures 17 mm in diameter. Adrenals: Unremarkable. Kidneys and ureters: Bilateral renal cysts are seen. Bladder: Diffuse homogeneous wall thickening is seen. Reproductive organs: Prostatomegaly is seen. Bowel: Extensive diverticulosis is seen. The appendix is normal.. A small hiatal hernia is seen. Numerous dilated loops of small bowel measure up to 38 mm in diameter. Proximal and distal transition points are seen with underdistention of the distal small bowel and colon. Lymph nodes Retroperitoneal: Unremarkable. Pelvic: Unremarkable. Mesenteric: Unremarkable. Peritoneum: A small amount of free fluid is seen most prominently in the pelvis. Vessels: Atherosclerotic calcifications are seen. Abdominal wall: A fat-containing umbilical hernia is seen. Hernia repair mesh is noted. Right fat-containing umbilical hernia is seen. Bones: Degenerative changes in the visualized spine. IMPRESSION: Closed-loop obstruction of the small bowel is seen with underdistention of the distal bowel. No evidence of perforation or suggestion of wall ischemia. ACT 112: Negative or not required by law. Electronically signed by: Pastor Blank M.D. 08/23/2022 9:10 AM KUB X-Ray 08/25/22 09:11 KUB HISTORY: Acute generalized abdominal pain with small bowel obstruction SBO COMPARISON: CT 08/23/2022 FINDINGS: Prior ventral abdominal wall herniorrhaphy. Persistent small bowel obstruction with dilated loop of small bowel within central abdomen measuring approximately 4.5 cm transversely. Findings are similar to the prior study. Pelvic basin phleboliths. No renal calculi. No ureteral calculi. No pneumoperitoneum or pneumatosis. Lumbar levoscoliosis with degenerative changes of the spine, pelvis and hips. No fracture. IMPRESSION: Persistent small bowel obstruction. ACT 112: Negative or not required by law. The above report was generated using voice recognition software. It may contain grammatical, syntax or spelling errors. Electronically signed by: Marin Foley M.D. 08/25/2022 10:46 AM (2) Hypertension Hypertension type: unspecified Qualified Code(s): I10 - Essential (primary) hypertension (3) Hyperlipidemia Hyperlipidemia type: unspecified Qualified Code(s): E78.5 - Hyperlipidemia, unspecified
--- NOTE | 2022-08-25 11:01 | Surgery Progress Note ---
Date of Service August 25, 2022 Assessment & Plan (1) Small bowel obstruction: Plan: Seemed to be improving yesterday. This am does not seem to be continuing in that direction. Plan for surgical exploration. The details of the procedure have been explained to the patient including the risks and benefits. He expressed understanding of this explanation and all of his questions were answered. Consent was obtained. KUB for surgical planning and evaluate for possible NGT benefit while awaiting the OR. Admission and Anticipated Discharge Date Admission Date: August 23, 2022 Subjective Patient seen this am. Patient reports no further flatus since yesterday afternoon. He also c/o intermittent abdominal pain along with nausea which was previously not present. Also c/o back pain this am. Physical Exam Constitutional: cooperative; no acute distress, + uncomfortable (wincing, appears to be having pain) and not in distress Respiratory: normal respiratory effort; no respiratory distress, no labored breathing, does not use accessory muscles and no cough Cardiovascular: Rate/Rhythm: regular rate Gastrointestinal (Abdomen): Inspection/Auscultation: abdomen normal to inspection and + abdomen distended (minimally) Percussion/Palpation: + abdomen tender (Left side) and + guarding (voluntary) Results & Data Vital Signs (Past 12 Hours) Vital Signs Temp Pulse Pulse Resp BP Pulse Ox O2 Del Method 08/25/22 10:38 60 08/25/22 07:06 36.4 C L 82 16 154/81 H 96 Room Air 08/25/22 03:08 36.7 C 60 19 146/72 H 96 Room Air Laboratory Results No leukocytosis or metabolic derrangement PG Care Time/CCT Total # of Minutes Spent Total Time Spent with Patient: Total time spent is greater than 50% in coordination of care (as documented) at patient's floor/unit and/or counseling patient: Coding Level of Care Code 38941 SUB INP/OBS CARE 2/35MIN Diagnoses Small bowel obstruction K56.609
[2022-08-25] MEDS ORDERED: SODIUM CHLORIDE 0.65% NA SOLN 45 ML (OCEAN) ONE ×2 (11:54→11:55)
--- NOTE | 2022-08-25 12:59 | XRay Report ---
KUB HISTORY: Status post placement of an enteric tube NG tube placement COMPARISON: KUB 08/25/2022 FINDINGS: Status post placement of enteric tube with distal tip projected transversely in the expecte d location of the proximal stomach. Prior ventral abdominal wall herniorrhaphy. Persistent small arun l obstruction with dilated loop of small bowel within central abdomen measuring approximately 4.5 cm transversely. Findings are similar to the prior study. Pelvic basin phleboliths. No renal calculi. No ureteral calculi. No pneumoperitoneum or pneumatosis. Lumbar levoscoliosis with degenerative changes of the spine, pelvis and hips. No fracture. IMPRESSION: 1. Status post placement of an enteric tube with distal tip in the expected location of the proximal stomach. Advancement recommended. 2. Persistent small bowel obstruction. ACT 112: Negative or not required by law. The above report was generated using voice recognition software. It may contain grammatical, syntax o r spelling errors. Electronically signed by: Marin Foley M.D. 08/25/2022 12:58 PM
[2022-08-25] MEDS ORDERED: HYDROmorphone INJ 2 MG/ML SYR/VIAL IV PRN (13:55)
[2022-08-25] MEDS ORDERED: ePHEDrine sulfate 50 MG/ML AMP IV PRN (13:55)
[2022-08-25] MEDS ORDERED: ONDANSETRON INJ 2 MG/ML 2 ML VIAL IV PRN (13:55)
[2022-08-25] MEDS ORDERED: ATROPINE SULFATE 0.1 MG/ML 10ML SYR IV PRN (13:55)
--- NOTE | 2022-08-25 14:04 | Anesthesiology Consultation ---
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 Systolic anterior motion of the mitral leaflet: Discussed findings with patient. Recommended stress echo to evaluate for LVOT obstruction with exercise and also for additional Doppler to investigate for obstruction with Valsalva. Stress echo performed. Mild gradient with Valsalva and severe gradient following exercise, consistent with LVOT obstruction from ROXANNE. Recommend metoprolol 25 mg twice daily. This will likely require further titration. If blood pressure acceptable, would recommend reduction in PRAVEEN inhibitor. Remain well-hydrated. 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 History Surgery Operation Date: 08/25/22 19:40 Proposed Procedures p Exploratory Laparoscopy possible Laparotomy Possible Bowel Resection - Chantell Mondragon DO Height/Weight Height: 5 ft 9 in Weight: 87.5 kg Allergies Allergy/AdvReac Type Severity Reaction Status Date / Time No Known Allergies Allergy Verified 06/23/22 09:05 Medications Home Medications Medication Instructions Recorded Confirmed Last Taken atorvastatin 20 mg tablet 20 mg PO QAM 07/21/19 08/23/22 08/22/22 multivitamin 1 tab PO QAM 07/21/19 08/23/22 08/22/22 aspirin 81 mg tablet,delayed 81 mg PO QAM 04/13/21 08/23/22 08/22/22 release (Chani Low Dose Aspirin) lisinopril 40 mg tablet 40 mg PO DAILY 09/24/21 08/23/22 08/22/22 ciprofloxacin HCl 500 mg tablet 500 mg PO BID #2 tabs 08/22/22 08/23/22 08/22/22 metoprolol tartrate 25 mg tablet 50 mg PO BID 08/23/22 08/23/22 08/22/22 Active Medications Generic Name Dose Route Start Last Admin Trade Name Freq PRN Reason Stop Dose Admin Dextrose/Sodium Chloride 1,000 mls @ 100 mls/hr 08/23/22 18:45 08/25/22 09:26 D5w And Nss IV 09/22/22 18:44 100 mls/hr .Q10H MIKE Administration Acetaminophen 1,000 mg in 100 mls @ 400 mls/hr 08/24/22 09:15 08/25/22 09:40 Ofirmev IV 08/27/22 09:14 Infused Q8H MIKE Infusion Morphine Sulfate 2 mg 08/23/22 14:16 08/25/22 11:33 Morphine Sulfate 2 Mg/Ml Carp IV 09/06/22 14:15 2 mg Q3H PRN Administration Pain, moderate rating 4,5,6 Morphine Sulfate 4 mg 08/23/22 14:16 08/23/22 15:58 Morphine Sulfate 4 Mg/Ml 1 Ml Carp\Vial IV 09/06/22 14:15 4 mg Q3H PRN Administration Pain, severe rating 7,8,9,10 Past Medical History Medical History (Updated 08/25/22 @ 14:04 by Alexy Lara MD) Elevated PSA Hyperlipidemia Hypertension Paroxysmal atrial tachycardia Prediabetes Small bowel obstruction Systolic anterior movement of mitral valve Past Family History Family History Brother Heart disease Past Surgical History Surgical History Hx of umbilical hernia repair Social History Smoking Status: Former smoker tobacco type: cigarettes Hx Alcohol Use: Yes Alcohol type: wine alcohol intake frequency: a few times a month Hx Substance Use: No substance use type: does not use Physical Exam Vital Signs Last Vital Signs Temp 36.6 C 08/25/22 11:55 Pulse 67 08/25/22 11:55 Resp 16 08/25/22 11:55 BP 155/81 H 08/25/22 11:55 Pulse Ox 94 08/25/22 11:55 O2 Del Method Room Air 08/25/22 11:55 O2 Flow Rate 1 08/23/22 07:48 Testing Laboratory Results 08/25/22 07:30 08/25/22 07:30 Urine Color Yellow 08/23/22 08:44 Urine Appearance Clear (Clear) 08/23/22 08:44 Urine pH 8.5 (4.5-7.5) H 08/23/22 08:44 Ur Specific Abell 1.021 (1.000-1.030) 08/23/22 08:44 Urine Protein Negative (Negative) 08/23/22 08:44 Urine Glucose (UA) Negative (Negative) 08/23/22 08:44 Urine Ketones Trace (Negative) H 08/23/22 08:44 Urine Nitrite Negative (Negative) 08/23/22 08:44 Ur Leukocyte Esterase Negative (Negative) 08/23/22 08:44 Electrocardiogram Date: 08/10/22 DICTATED BY:Tyler Michelle MD Test Reason : Blood Pressure : / mmHG Vent. Rate : 064 BPM Atrial Rate : 064 BPM P-R Int : 174 ms QRS Dur : 126 ms QT Int : 458 ms P-R-T Axes : 023 -42 000 degrees QTc Int : 472 ms Normal sinus rhythm Left axis deviation Right bundle branch block Voltage criteria for left ventricular hypertrophy Abnormal ECG When compared with ECG of 10-AUG-2022 10:55, No significant change Confirmed by Tyler Michelle ([id number]) on 08/12/2022 4:57:38 AM Echocardiogram Date: 08/11/22 Negative stress echo for ischemia at 03% MPHR Negative exercise ECG for ischemia at 103% MPHR Hypertensive blood pressure response to exercise At baseline condition, NO SIG LVOT OBSTRUCTION Mild LVOT obstruction noted with Valsalva Severe LVOT obstruction following exercise. Other Testing KUB 08/25/22 HISTORY: Status post placement of an enteric tube NG tube placement COMPARISON: KUB 08/25/2022 FINDINGS: Status post placement of enteric tube with distal tip projected transversely in the expected location of the proximal stomach. Prior ventral abdominal wall herniorrhaphy. Persistent small bowel obstruction with dilated loop of small bowel within central abdomen measuring approximately 4.5 cm transversely. Findings are similar to the prior study. Pelvic basin phleboliths. No renal calculi. No ureteral calculi. No pneumoperitoneum or pneumatosis. Lumbar levoscoliosis with degenerative changes of the spine, pelvis and hips. No fracture. IMPRESSION: 1. Status post placement of an enteric tube with distal tip in the expected location of the proximal stomach. Advancement recommended. 2. Persistent small bowel obstruction
[2022-08-25] MEDS ORDERED: ALBUMIN HUMAN 5% 12.5 GM/250 ML VIAL IV ONE (14:11)
--- NOTE | 2022-08-25 14:17 | XRay Report ---
ASHA CLINICAL HISTORY: NG tube need placement needed advanced COMPARISON STUDY: KUCrystal August 25, 2022 at 12:37 PM. FINDINGS: The nasogastric tube has been advanced. The tip projects over the distal stomach. Small bow el dilatation has likely mildly decreased since prior exam. IMPRESSION: Interval advancement of the nasogastric tube. The tip now projects over the distal stoma ch. ACT 112: Negative or not required by law. Electronically signed by: Sabino Scott M.D. 08/25/2022 2:16 PM
[2022-08-25] MEDS ORDERED: ERTAPENEM SODIUM 1,000 MG in SYRINGE 0 ML IV SCH (15:00)
[2022-08-25] MEDS ORDERED: BUPIVACAINE/EPINEPHRINE 0.5% MPF 1:200,000 30 ML VIAL ONE (15:37)
[2022-08-25] MEDS ORDERED: HYDROmorphone INJ 2 MG/ML SYR/VIAL IV ONE (16:00)
[2022-08-25] MEDS ORDERED: MIDAZOLAM HCL 1 MG/ML 2ML VIAL ONE (16:26)
[2022-08-25] MEDS ORDERED: PROPOFOL IV EMULSION 10 MG/ML 20 ML VIAL IV ONE (16:26)
[2022-08-25] MEDS ORDERED: SUCCINYLCHOLINE CHLORIDE 20 MG/ML 10 ML VIAL IV ONE (16:26)
[2022-08-25] MEDS ORDERED: LIDOCAINE 2% MPF LOCAL 5 ML VIAL INFIL ONE (16:26)
[2022-08-25] MEDS ORDERED: ONDANSETRON INJ 2 MG/ML 2 ML VIAL ONE (16:26)
[2022-08-25] MEDS ORDERED: fentaNYL citrate PF 100 MCG/2 ML VIAL ONE ×2 (16:26)
[2022-08-25] MEDS ORDERED: ROCURONIUM BROMIDE 10 MG/ML 5 ML VIAL IV ONE (16:26)
[2022-08-25] MEDS ORDERED: DEXAMETHASONE SOD INJ 4 MG/ML VIAL ONE (16:26)
[2022-08-25] MEDS ORDERED: KETAMINE 50 MG/5 ML SYRINGE ONE (16:27)
[2022-08-25] MEDS ORDERED: SUGAMMADEX SODIUM 200 MG/2 ML VIAL IV ONE (16:59)
[2022-08-25] MEDS ORDERED: BACITRACIN OINT 15 GM TUBE ONE (17:13)
[2022-08-25] MEDS: fentaNYL citrate PF 100 MCG/2 ML VIAL IV PRN ×4 (17:47→18:05)
--- NOTE | 2022-08-25 18:10 | Anesthesiology Progress Note ---
Date of Service August 25, 2022 Anesthesia Post Procedure Vital Signs Vital Signs: Temp Pulse Pulse Pulse Resp BP Pulse Ox 08/25/22 18:00 72 14 154/89 H 97 08/25/22 17:50 80 20 151/84 H 94 08/25/22 17:40 85 18 162/94 H 99 08/25/22 17:30 36.8 C 94 H 20 169/96 H 96 08/25/22 15:25 74 08/25/22 14:20 36.8 C 75 18 168/97 H 96 08/25/22 11:55 36.6 C 67 16 155/81 H 94 08/25/22 10:38 60 08/25/22 07:06 36.4 C L 82 16 154/81 H 96 08/24/22 22:15 72 08/25/22 03:08 36.7 C 60 19 146/72 H 96 08/24/22 22:00 69 19 154/87 H 95 08/24/22 20:58 36.8 C 68 19 143/94 H 97 O2 Del Method O2 Flow Rate 08/25/22 18:00 Nasal Cannula 2 08/25/22 17:50 Room Air 08/25/22 17:40 Oxymask 3 08/25/22 17:30 Oxymask 6 08/25/22 15:25 08/25/22 14:20 Room Air 08/25/22 11:55 Room Air 08/25/22 10:38 08/25/22 07:06 Room Air 08/24/22 22:15 08/25/22 03:08 Room Air 08/24/22 22:00 Room Air 08/24/22 20:58 Room Air Pain Intensity Medial Abdomen: Pain Intensity: 5 Transfer of Care Handoff Completed per policy Notes Mental Status: alert / awake / arousable and participated in evaluation Patient Amnestic to Procedure: Yes Nausea / Vomiting: adequately controlled Pain: adequately controlled Airway Patency, RR, SpO2: stable & adequate BP & HR: stable & adequate Hydration State: stable & adequate Anesthetic Complications: no major complications apparent and Pt Satisfied with anesthetic care
--- NOTE | 2022-08-25 21:11 | Operative Report ---
PG Post Operative Report Pre & Post Diagnosis Operation Date: 08/25/22 19:40 Pre-Op Diagnosis: Small Bowel Obstruction Post-Op Diagnosis: Small Bowel Obstruction I identified the patient and participated in the time-out.: Yes Procedure Operation Date: 08/25/22 19:40 Actual Procedures p Exploratory Laparoscopy Lysis of Adhesions(Not Applicable) - Chantell Lacy DO Surgeon Chantell Mondragon DO Waiter/Waitress [employer] Dr. Massimo Cuevas Estimated Blood Loss 30 Findings Consistent with Post-Op Diagnosis Soft adhesions of omentum to the abdominal wall mesh. Soft material filling the small bowel lumen for roughly 15cm with chronic interloop adhesions causing the bowel to be folded and adhesed on itself in multiple sections. Specimens None Drains None Anesthesia Type General Complications None Description of Procedure The patient was brought to the operating room and placed on the OR table in supine position. Thigh high SCDs were applied. An A-line was inserted. The patient was connected to cardiac and O2 monitoring. He was administered general anesthesia and intubated. A Christie catheter was inserted. The abdomen was prepped and draped in typical sterile fashion. A time out was conducted. Local anesthetic was used to anesthetize the skin prior to all incisions. A small stab incision was made at the RUQ using a scalpel and the facia was elevated. A Veress needle was used to gain access to the intra-abdominal space. CO2 insufflation was initiated and the abdomen was insufflated to a goal pressure of 15mmHg. A 12mm trocar was inserted. A 10mm laparoscope was inserted. Omental adhesions were noted at the mid portion of the abdomen adherent to the mesh from his previous umbilical hernia surgery. These were taken down using a Harmonic and hemostasis was maintained throughout this process. The small bowel was inspected. Dilated loops were noted at the right side of the abdomen. Two additional 5mm trocars were inserted along the right side of the abdomen and the small bowel was mobilized using graspers. Isolated prominent and firm segments of small bowel were mobilized from the left side of the abdomen. These segments appeared to be segments of folded bowel with a firm, sausage-like appearance. At this point it became evident that this was not going to be something that would be able to be resolved laparoscopically and the problem area was clear. The laparoscope was removed as well as the trocars and the CO2 insufflation was discontinued. So with the mesh in view, a left transverse incision was made avoiding the mesh and the affected small bowel was brought out through the incision. It was then noted that the segmental appearance of bowel was being created by chronic interloop adhesions and thick serosal casing. 3-4 contiguous areas of interloop adhesions were lysed along one loop of bowel. This freed the bowel to resume a usual elongated course. The material inside the bowel felt soft and was able to be manually mobilized into distal collapsed bowel. The bowel was run up to the ligament of Treitz to be sure that there were no other areas of concern. The distal collapsed bowel was run as well. The bowel was returned to the abdomen appearing to be in good condition. The peritoneum was closed with 0- Prolene as was the muscle. The subcutaneous tissue was re-approximated using 3-0 Vicryl. The facia at the 12mm trocar site was closed with 0-Vicryl. The skin was closed with cameron at all 4 incisions. The abdomen was cleaned with a saline soaked lap pad and dried. The incisions were dressed with Bacitracin and gauze secured in place with Tegaderm. The patient tolerated the procedure well. He was awakened from anesthesia, extubated and transferred to recovery in stable condition. I attest to the content of the Intraoperative Record and any orders documented therein. Any exceptions are noted below. The zoning assistant's role was critical throughout this entire case from start to finish aiding in intestinal mobilization, exposure/presentation of tissue for safe lysis of adhesions and abdominal wall closure.
[2022-08-25] MEDS: LACTATED RINGER'S 1,000 ML IV SCH (21:44)
--- NOTE | 2022-08-25 22:03 | Surgery Progress Note ---
Date of Service August 25, 2022 Assessment & Plan (1) Small bowel obstruction: Plan: s/p exploratory laparoscopy with hand assisted EMILY Plan Continue post op orders as written maintain NGT and Christie for now F/U am labs Patient is comfortable, pain control as needed Admission and Anticipated Discharge Date Admission Date: August 23, 2022 Subjective Patient was seen post operatively after returning to his room on the floor. He states he feels better. Denies nausea or pain. Physical Exam Gastrointestinal (Abdomen): NGT and Christie catheter in place Results & Data Vital Signs (Past 12 Hours) Vital Signs Temp Pulse Pulse Pulse Resp BP Pulse Ox 08/25/22 20:00 08/25/22 19:55 36.9 C 76 16 148/70 H 97 08/25/22 19:40 36.9 C 76 16 148/70 H 97 08/25/22 19:25 36.8 C 76 18 141/71 H 97 08/25/22 19:10 36.7 C 75 18 158/82 H 97 08/25/22 18:00 72 14 154/89 H 97 08/25/22 17:50 80 20 151/84 H 94 08/25/22 18:20 36.7 C 73 14 145/75 H 95 08/25/22 18:10 80 14 155/88 H 97 08/25/22 17:40 85 18 162/94 H 99 08/25/22 17:30 36.8 C 94 H 20 169/96 H 96 08/25/22 15:25 74 08/25/22 14:20 36.8 C 75 18 168/97 H 96 08/25/22 11:55 36.6 C 67 16 155/81 H 94 08/25/22 10:38 60 O2 Del Method O2 Flow Rate 08/25/22 20:00 Nasal Cannula 2 08/25/22 19:55 Nasal Cannula 2 08/25/22 19:40 Nasal Cannula 2 08/25/22 19:25 Nasal Cannula 2 08/25/22 19:10 Nasal Cannula 2 08/25/22 18:00 Nasal Cannula 2 08/25/22 17:50 Room Air 08/25/22 18:20 Room Air 2 08/25/22 18:10 Room Air 2 08/25/22 17:40 Oxymask 3 08/25/22 17:30 Oxymask 6 08/25/22 15:25 08/25/22 14:20 Room Air 08/25/22 11:55 Room Air 08/25/22 10:38 Coding Level of Care Code 68719 Post Operative Follow-Up Diagnoses Small bowel obstruction K56.609
[2022-08-26] MEDS: ACETAMINOPHEN 1,000 MG/100 ML VIAL IV SCH ×3 (02:24→17:48)
[2022-08-26] MEDS: MoRPHine SULFATE 2 MG/ML CARP IV PRN ×3 (03:25→21:49)
[2022-08-26 06:51] LABS: Basophils # (auto) 0.01 K/uL (0-0.2); Basophils % (auto) 0.1 %; Hematocrit (blood only) 36.7 % (42.0-52.0); Immature Granulocytes # (auto) 0.05 K/uL (0.01-0.20); Immature Granulocytes % (auto) 0.4 %; Lymphocytes # (auto) 1.25 K/uL (1.2-3.4); Lymphocytes % (auto) 10.1 %; Mean Corpuscular Hemoglobin 30.4 pg (25.0-34.0); Mean Corpuscular Hgb Conc 35.4 g/dL (32.0-36.0); Mean Corpuscular Volume 85.7 fL (80.0-100.0); Mean Platelet Volume 10.4 fL (9.4-12.4); Monocytes # (auto) 0.89 K/uL (0.11-0.59); Monocytes % (auto) 7.2 %; Neutrophils # (auto) 10.17 K/uL (1.40-6.50); Neutrophils % (auto) 82.2 %; Platelet Count 221 K/uL (130-400); RDW Coefficient of Variation 12.5 % (11.5-14.5); RDW Standard Deviation 38.5 fL (36.4-46.3); Red Blood Count 4.28 M/uL (4.70-6.10); White Blood Count 12.37 K/ul (4.8-10.8)
[2022-08-26 07:07] LABS: Albumin Globulin Ratio 1.7 (0.9-2); Albumin Level 3.9 gm/dl (3.4-5.0); BUN Creatinine Ratio 13.6 (10-20); Bilirubin,Total 1.4 mg/dl (0.2-1.0); Calcium 8.6 mg/dl (8.5-10.1); Creatinine Clr Calc Pharmacy 92.9 ml/min; Est GFR (African American) 104.4 ml/min; Globulin 2.3 gm/dl (2.5-4.0); Total Protein 6.2 gm/dl (6.0-8.3)
[2022-08-26] MEDS: LACTATED RINGER'S 1,000 ML IV SCH ×2 (09:06→17:48)
[2022-08-26] MEDS ORDERED: CHLORASEPTIC 1.4% SOLN 180 ML BTL MT PRN (10:00)
--- NOTE | 2022-08-26 11:46 | Surgery Progress Note ---
I reviewed the patient's labs and saw the patient with the surgical PA on rounds today. Agree with the plan Date of Service August 26, 2022 Assessment & Plan (1) Small bowel obstruction: Plan: POD#1 ex lap, lysis of adhesions.. no bowel resection was performed WBC 6, Hbg 13m Cr 0.8. Vital signs are stable Pt doing as expected Would keep NGT in place until return of bowel function Will d/c loza today Encourage OOB as tolerates and pulmonary toilet [facility] covering over the weekend Admission and Anticipated Discharge Date Admission Date: August 23, 2022 Subjective Patient feeling okay. Mild nausea this AM. Some pain in abdomen, but biggest complaint currently is NGT. Feels like he may have some rumbling in the abdomen like he may pass flatus or a BM soon. Physical Exam Physical Exam: awake/alert, no distress Respiratory: normal respiratory effort Gastrointestinal (Abdomen): Inspection/Auscultation: + abdominal surgical incision (surgical dressings c/d/i ) Percussion/Palpation: + abdomen tender (expected nayan incisional discomfort to palpation) and abdomen soft NGT with only small amount of brown liquid output in canister Results & Data Vital Signs (Past 12 Hours) Vital Signs Temp Pulse Resp BP Pulse Ox O2 Del Method 08/26/22 08:39 36.4 C L 71 16 169/83 H 96 Room Air 08/26/22 03:55 36.8 C 70 18 162/84 H 97 Room Air 08/25/22 23:55 36.6 C 65 18 149/78 H 97 Room Air PG Care Time/CCT Total # of Minutes Spent Total Time Spent with Patient: Total time spent is greater than 50% in coordination of care (as documented) at patient's floor/unit and/or counseling patient: Coding Level of Care Code 42777 Post Operative Follow-Up Diagnoses Small bowel obstruction K56.609
--- NOTE | 2022-08-26 12:10 | Hospitalist Progress Note ---
Date of Service August 26, 2022 Assessment & Plan (1) Small bowel obstruction: Plan: -Patient presented with abdominal pain, nausea. -CT abdomen and pelvis on admission showed closed-loop obstruction of the small bowel. No evidence of perforation or suggestion of wall ischemia. -Initially, he was managed conservatively; did not show significant improvement. -He is status post exploratory laparoscopic with lysis of adhesions on 08/25 by gypsy horne NG tube in place with dark output. Continue suction with NG tube until return of bowel function. Pain control with Tylenol and morphine. Continue IV fluids with LR at 100 cc/h. - Out of bed; PT OT. (2) Hypertension: Plan: - Holding oral medication; continue to monitor blood pressure for now. -Hypertension likely due to pain; continue pain control measures. 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 Admission and Anticipated Discharge Date Admission Date: August 23, 2022 Subjective Patient seen and examined at bedside. He reports pain at incision site. Reports nausea; no vomiting. He has not passed flatus or had a bowel movement. Reports that he has difficulty with the NG tube. Review of Systems Review of Systems: All systems reviewed & are unremarkable except as noted in Subjective Physical Exam Physical Exam: Constitutional: Awake, alert orient x3; in mild discomfort. NG tube in place. Respiratory: normal respiratory effort, lungs clear to auscultation, no wheeze, rales, rhonchi. Normal insp/exp effort, no accessory muscle use Cardiovascular: RRR, no murmur, no edema Vessels: no JVD or carotid bruit Chest: normal inspection of chest Abdomen: Dressing clean dry and intact; tenderness around incision site. Musculoskeletal: no cyanosis or clubbing, extremities motor strength 5/5 Skin: no rashes, warm and dry normal turgor Neurologic: PERRL, EOMI, accommodation nl, no face palsy, no dysarthria CN's II- XI intact bilaterally and moves all extremities Psychiatric: A+Ox3, euthymic affect Lymphatic: no cervical or axillary lymphadenopathy : deferred Results & Data Results & Data Vital Signs (Past 12 Hours) Vital Signs Temp Pulse Resp BP Pulse Ox O2 Del Method 08/26/22 11:56 36.8 C 71 18 169/80 H 98 Room Air 08/26/22 08:39 36.4 C L 71 16 169/83 H 96 Room Air 08/26/22 03:55 36.8 C 70 18 162/84 H 97 Room Air Laboratory Results Laboratory Results WBC 12.37 K/ul (4.8-10.8) H 08/26/22 06:33 RBC 4.28 M/uL (4.70-6.10) L 08/26/22 06:33 Hgb 13.0 g/dl (14.0-18.0) L 08/26/22 06:33 Hct 36.7 % (42.0-52.0) L 08/26/22 06:33 MCV 85.7 fL (80.0-100.0) 08/26/22 06:33 MCH 30.4 pg (25.0-34.0) 08/26/22 06:33 MCHC 35.4 g/dL (32.0-36.0) 08/26/22 06:33 RDW Std Deviation 38.5 fL (36.4-46.3) 08/26/22 06:33 RDW Coeff of Cierra 12.5 % (11.5-14.5) 08/26/22 06:33 Plt Count 221 K/uL (130-400) 08/26/22 06:33 MPV 10.4 fL (9.4-12.4) 08/26/22 06:33 Immature Gran % (Auto) 0.4 % 08/26/22 06:33 Neut % (Auto) 82.2 % 08/26/22 06:33 Lymph % (Auto) 10.1 % 08/26/22 06:33 Pope % (Auto) 7.2 % 08/26/22 06:33 Eos % (Auto) 0.0 % 08/26/22 06:33 Baso % (Auto) 0.1 % 08/26/22 06:33 Neut # (Auto) 10.17 K/uL (1.40-6.50) H 08/26/22 06:33 Lymph # (Auto) 1.25 K/uL (1.2-3.4) 08/26/22 06:33 Pope # (Auto) 0.89 K/uL (0.11-0.59) H 08/26/22 06:33 Eos # (Auto) 0.00 K/uL (0-0.50) 08/26/22 06:33 Baso # (Auto) 0.01 K/uL (0-0.2) 08/26/22 06:33 Immature Gran # (Auto) 0.05 K/uL (0.01-0.20) 08/26/22 06:33 Sodium 137 mmol/L (136-145) 08/26/22 06:33 Potassium 4.0 mmol/L (3.5-5.1) 08/26/22 06:33 Chloride 106 mmol/L (98-107) 08/26/22 06:33 Carbon Dioxide 25 mmol/L (21-32) 08/26/22 06:33 Anion Gap 6 (3-11) 08/26/22 06:33 BUN 11 mg/dl (6-23) 08/26/22 06:33 Creatinine 0.81 mg/dl (0.6-1.4) 08/26/22 06:33 Est Cr Clr Drug Dosing 92.9 ml/min 08/26/22 06:33 Est GFR ( Amer) 104.4 ml/min 08/26/22 06:33 Est GFR (Non-Af Amer) 90.0 ml/min 08/26/22 06:33 BUN/Creatinine Ratio 13.6 (10-20) 08/26/22 06:33 Glucose 116 mg/dl (70-99(Fasting)) H 08/26/22 06:33 Lactate 1.8 mmol/L (0.4-2.0) 08/23/22 08:02 Calcium 8.6 mg/dl (8.5-10.1) 08/26/22 06:33 Total Bilirubin 1.4 mg/dl (0.2-1.0) H 08/26/22 06:33 AST 19 U/L (13-39) 08/26/22 06:33 ALT 22 U/L (7-52) 08/26/22 06:33 Alkaline Phosphatase 51 U/L (34-104) 08/26/22 06:33 Total Protein 6.2 gm/dl (6.0-8.3) 08/26/22 06:33 Albumin 3.9 gm/dl (3.4-5.0) 08/26/22 06:33 Globulin 2.3 gm/dl (2.5-4.0) L 08/26/22 06:33 Albumin/Globulin Ratio 1.7 (0.9-2) 08/26/22 06:33 Lipase 42 U/L (11-82) 08/23/22 07:21 Urine Color Yellow 08/23/22 08:44 Urine Appearance Clear (Clear) 08/23/22 08:44 Urine pH 8.5 (4.5-7.5) H 08/23/22 08:44 Ur Specific [place] 1.021 (1.000-1.030) 08/23/22 08:44 Urine Protein Negative (Negative) 08/23/22 08:44 Urine Glucose (UA) Negative (Negative) 08/23/22 08:44 Urine Ketones Trace (Negative) H 08/23/22 08:44 Urine Blood Negative (Negative) 08/23/22 08:44 Urine Nitrite Negative (Negative) 08/23/22 08:44 Urine Bilirubin Negative (Negative) 08/23/22 08:44 Urine Urobilinogen Negative (Negative) 08/23/22 08:44 Ur Leukocyte Esterase Negative (Negative) 08/23/22 08:44 SARS-CoV-2 (PCR) NEGATIVE (Negative) 08/23/22 09:30 Impressions Abdomen/Pelvis CT 08/23/22 07:22 CT abd pelvis IV con only CLINICAL HISTORY: periumbilical abd pain TECHNIQUE: Helical axial images of the abdomen and pelvis were obtained and displayed. Automated dose lowering techniques and/or adjustment according to patient size were utilized for this exam. This exam was performed with intravenous contrast. CT DOSE: 887.11 mGycm COMPARISON: None available at the time of this dictation. FINDINGS: Lower chest: Mitral annular calcifications are partially visualized. Liver: Unremarkable. No focal lesions are seen. Gallbladder and biliary tree: No calcified gallstones. Normal caliber wall. No intra- or extrahepatic biliary ductal dilation. Pancreas: Unremarkable, no focal lesions. Spleen: Splenic cyst measures 17 mm in diameter. Adrenals: Unremarkable. Kidneys and ureters: Bilateral renal cysts are seen. Bladder: Diffuse homogeneous wall thickening is seen. Reproductive organs: Prostatomegaly is seen. Bowel: Extensive diverticulosis is seen. The appendix is normal.. A small hiatal hernia is seen. Numerous dilated loops of small bowel measure up to 38 mm in diameter. Proximal and distal transition points are seen with underdistention of the distal small bowel and colon. Lymph nodes Retroperitoneal: Unremarkable. Pelvic: Unremarkable. Mesenteric: Unremarkable. Peritoneum: A small amount of free fluid is seen most prominently in the pelvis. Vessels: Atherosclerotic calcifications are seen. Abdominal wall: A fat-containing umbilical hernia is seen. Hernia repair mesh is noted. Right fat-containing umbilical hernia is seen. Bones: Degenerative changes in the visualized spine. IMPRESSION: Closed-loop obstruction of the small bowel is seen with underdistention of the distal bowel. No evidence of perforation or suggestion of wall ischemia. ACT 112: Negative or not required by law. Electronically signed by: Pastor Blank M.D. 08/23/2022 9:10 AM KUB X-Ray 08/25/22 13:22 KUB CLINICAL HISTORY: NG tube need placement needed advanced COMPARISON STUDY: KUB August 25, 2022 at 12:37 PM. FINDINGS: The nasogastric tube has been advanced. The tip projects over the distal stomach. Small bowel dilatation has likely mildly decreased since prior exam. IMPRESSION: Interval advancement of the nasogastric tube. The tip now projects over the distal stomach. ACT 112: Negative or not required by law. Electronically signed by: Sabino Scott M.D. 08/25/2022 2:16 PM (2) Hypertension Hypertension type: unspecified Qualified Code(s): I10 - Essential (primary) hypertension (3) Hyperlipidemia Hyperlipidemia type: unspecified Qualified Code(s): E78.5 - Hyperlipidemia, unspecified
[2022-08-26] MEDS: PANTOprazole 40 MG in SYRINGE 0 ML IV SCH (14:52)
[2022-08-27] MEDS: ACETAMINOPHEN 1,000 MG/100 ML VIAL IV SCH ×3 (00:09→18:18)
[2022-08-27] MEDS: LACTATED RINGER'S 1,000 ML IV SCH (03:35)
[2022-08-27] MEDS: HEPARIN SOD 5,000 UNIT/0.5 ML VIAL SQ SCH ×3 (05:42→22:49)
[2022-08-27 07:40] LABS: Basophils # (auto) 0.03 K/uL (0-0.2); Basophils % (auto) 0.3 %; Eosinophils # (auto) 0.16 K/uL (0-0.50); Eosinophils % (auto) 1.8 %; Hematocrit (blood only) 37.7 % (42.0-52.0); Hemoglobin 13.2 g/dl (14.0-18.0); Immature Granulocytes # (auto) 0.01 K/uL (0.01-0.20); Immature Granulocytes % (auto) 0.1 %; Lymphocytes % (auto) 19.6 %; Mean Corpuscular Hemoglobin 30.1 pg (25.0-34.0); Mean Corpuscular Volume 86.1 fL (80.0-100.0); Mean Platelet Volume 11.6 fL (9.4-12.4); Monocytes # (auto) 0.75 K/uL (0.11-0.59); Monocytes % (auto) 8.6 %; Neutrophils # (auto) 6.03 K/uL (1.40-6.50); Neutrophils % (auto) 69.6 %; Platelet Count 174 K/uL (130-400); RDW Coefficient of Variation 12.9 % (11.5-14.5); RDW Standard Deviation 40.1 fL (36.4-46.3); Red Blood Count 4.38 M/uL (4.70-6.10); White Blood Count 8.68 K/ul (4.8-10.8)
[2022-08-27 07:58] LABS: Albumin Globulin Ratio 1.8 (0.9-2); Albumin Level 3.9 gm/dl (3.4-5.0); Bilirubin,Total 1.6 mg/dl (0.2-1.0); Calcium 8.3 mg/dl (8.5-10.1); Creatinine Clr Calc Pharmacy 94.1 ml/min; Est GFR (African American) 104.9 ml/min; Est GFR (Non-African American) 90.5 ml/min; Globulin 2.2 gm/dl (2.5-4.0); Potassium 3.5 mmol/L (3.5-5.1); Total Protein 6.1 gm/dl (6.0-8.3)
--- NOTE | 2022-08-27 09:50 | Surgery Progress Note ---
Date of Service August 27, 2022 Assessment & Plan (1) Small bowel obstruction: Plan: POD#2 status post exploratory lap laparoscopic assisted lysis of adhesion We will DC the NG tube start on clear liquids increase activity POD#1 ex lap, lysis of adhesions.. no bowel resection was performed WBC 6, Hbg 13m Cr 0.8. Vital signs are stable Pt doing as expected Would keep NGT in place until return of bowel function Will d/c loza today Encourage OOB as tolerates and pulmonary toilet [facility] covering over the weekend Admission and Anticipated Discharge Date Admission Date: August 23, 2022 Subjective Overall feels well stating passed a significant mount of flatus voiding without any issues no nausea Physical Exam Physical Exam: Alert coherent resting comfortable without any complaints NG tube in place no drainage appreciated The abdomen soft minimal guarding dressing on incision dry Results & Data Vital Signs (Past 12 Hours) Vital Signs Temp Pulse Pulse Resp BP Pulse Ox O2 Del Method 08/27/22 09:42 65 08/27/22 08:06 36.6 C 74 16 183/86 H 96 Room Air 08/27/22 05:42 66 149/70 H 08/27/22 03:00 36.7 C 64 21 178/87 H 93 Room Air 08/26/22 23:00 36.7 C 71 24 162/90 H 94 Room Air 08/26/22 23:10 68
--- NOTE | 2022-08-27 11:03 | Hospitalist Progress Note ---
Date of Service August 27, 2022 Assessment & Plan (1) Small bowel obstruction: Plan: -Patient presented with abdominal pain, nausea. -CT abdomen and pelvis on admission showed closed-loop obstruction of the small bowel. No evidence of perforation or suggestion of wall ischemia. -Initially, he was managed conservatively; did not show significant improvement. -He is status post exploratory laparoscopic with lysis of adhesions on 08/25 by gypsy horne NG tube taken out; started on clear liquid diet. - DC fluids. 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 currently on metoprolol (6) Prediabetes: Plan: - Hx of such, encourage diet and exercise DVT ppx: -teds, scds CODE: Full Dispo: From home PT/OT ordered. Admission and Anticipated Discharge Date Admission Date: August 23, 2022 Subjective Patient seen and examined at bedside. Minimal output through NG tube. Passing gas; no bowel movement. Review of Systems Review of Systems: All systems reviewed & are unremarkable except as noted in Subjective Physical Exam Physical Exam: Constitutional: Awake, alert orient x3; in mild discomfort. NG tube in place with minimal output. Respiratory: normal respiratory effort, lungs clear to auscultation, no wheeze, rales, rhonchi. Normal insp/exp effort, no accessory muscle use Cardiovascular: RRR, no murmur, no edema Vessels: no JVD or carotid bruit Chest: normal inspection of chest Abdomen: Dressing clean dry and intact; tenderness around incision site. soft. Musculoskeletal: no cyanosis or clubbing, extremities motor strength 5/5 Skin: no rashes, warm and dry normal turgor Neurologic: PERRL, EOMI, accommodation nl, no face palsy, no dysarthria CN's II- XI intact bilaterally and moves all extremities Psychiatric: A+Ox3, euthymic affect Lymphatic: no cervical or axillary lymphadenopathy : deferred Results & Data Results & Data Vital Signs (Past 12 Hours) Vital Signs Temp Pulse Pulse Resp BP Pulse Ox O2 Del Method 08/27/22 09:42 65 08/27/22 08:06 36.6 C 74 16 183/86 H 96 Room Air 08/27/22 05:42 66 149/70 H 08/27/22 03:00 36.7 C 64 21 178/87 H 93 Room Air 08/26/22 23:00 36.7 C 71 24 162/90 H 94 Room Air 08/26/22 23:10 68 Laboratory Results Laboratory Results WBC 8.68 K/ul (4.8-10.8) 08/27/22 07:03 RBC 4.38 M/uL (4.70-6.10) L 08/27/22 07:03 Hgb 13.2 g/dl (14.0-18.0) L 08/27/22 07:03 Hct 37.7 % (42.0-52.0) L 08/27/22 07:03 MCV 86.1 fL (80.0-100.0) 08/27/22 07:03 MCH 30.1 pg (25.0-34.0) 08/27/22 07:03 MCHC 35.0 g/dL (32.0-36.0) 08/27/22 07:03 RDW Std Deviation 40.1 fL (36.4-46.3) 08/27/22 07:03 RDW Coeff of Cierra 12.9 % (11.5-14.5) 08/27/22 07:03 Plt Count 174 K/uL (130-400) 08/27/22 07:03 MPV 11.6 fL (9.4-12.4) 08/27/22 07:03 Immature Gran % (Auto) 0.1 % 08/27/22 07:03 Neut % (Auto) 69.6 % 08/27/22 07:03 Lymph % (Auto) 19.6 % 08/27/22 07:03 [place] % (Auto) 8.6 % 08/27/22 07:03 Eos % (Auto) 1.8 % 08/27/22 07:03 Baso % (Auto) 0.3 % 08/27/22 07:03 Neut # (Auto) 6.03 K/uL (1.40-6.50) 08/27/22 07:03 Lymph # (Auto) 1.70 K/uL (1.2-3.4) 08/27/22 07:03 [place] # (Auto) 0.75 K/uL (0.11-0.59) H 08/27/22 07:03 Eos # (Auto) 0.16 K/uL (0-0.50) 08/27/22 07:03 Baso # (Auto) 0.03 K/uL (0-0.2) 08/27/22 07:03 Immature Gran # (Auto) 0.01 K/uL (0.01-0.20) 08/27/22 07:03 Sodium 139 mmol/L (136-145) 08/27/22 07:03 Potassium 3.5 mmol/L (3.5-5.1) 08/27/22 07:03 Chloride 104 mmol/L (98-107) 08/27/22 07:03 Carbon Dioxide 29 mmol/L (21-32) 08/27/22 07:03 Anion Gap 6 (3-11) 08/27/22 07:03 BUN 12 mg/dl (6-23) 08/27/22 07:03 Creatinine 0.80 mg/dl (0.6-1.4) 08/27/22 07:03 Est Cr Clr Drug Dosing 94.1 ml/min 08/27/22 07:03 Est GFR ( Amer) 104.9 ml/min 08/27/22 07:03 Est GFR (Non-Af Amer) 90.5 ml/min 08/27/22 07:03 BUN/Creatinine Ratio 15.0 (10-20) 08/27/22 07:03 Glucose 105 mg/dl (70-99(Fasting)) H 08/27/22 07:03 Lactate 1.8 mmol/L (0.4-2.0) 08/23/22 08:02 Calcium 8.3 mg/dl (8.5-10.1) L 08/27/22 07:03 Total Bilirubin 1.6 mg/dl (0.2-1.0) H 08/27/22 07:03 AST 22 U/L (13-39) 08/27/22 07:03 ALT 25 U/L (7-52) 08/27/22 07:03 Alkaline Phosphatase 52 U/L (34-104) 08/27/22 07:03 Total Protein 6.1 gm/dl (6.0-8.3) 08/27/22 07:03 Albumin 3.9 gm/dl (3.4-5.0) 08/27/22 07:03 Globulin 2.2 gm/dl (2.5-4.0) L 08/27/22 07:03 Albumin/Globulin Ratio 1.8 (0.9-2) 08/27/22 07:03 Lipase 42 U/L (11-82) 08/23/22 07:21 Urine Color Yellow 08/23/22 08:44 Urine Appearance Clear (Clear) 08/23/22 08:44 Urine pH 8.5 (4.5-7.5) H 08/23/22 08:44 Ur Specific [place] 1.021 (1.000-1.030) 08/23/22 08:44 Urine Protein Negative (Negative) 08/23/22 08:44 Urine Glucose (UA) Negative (Negative) 08/23/22 08:44 Urine Ketones Trace (Negative) H 08/23/22 08:44 Urine Blood Negative (Negative) 08/23/22 08:44 Urine Nitrite Negative (Negative) 08/23/22 08:44 Urine Bilirubin Negative (Negative) 08/23/22 08:44 Urine Urobilinogen Negative (Negative) 08/23/22 08:44 Ur Leukocyte Esterase Negative (Negative) 08/23/22 08:44 SARS-CoV-2 (PCR) NEGATIVE (Negative) 08/23/22 09:30 Impressions Abdomen/Pelvis CT 08/23/22 07:22 CT abd pelvis IV con only CLINICAL HISTORY: periumbilical abd pain TECHNIQUE: Helical axial images of the abdomen and pelvis were obtained and displayed. Automated dose lowering techniques and/or adjustment according to patient size were utilized for this exam. This exam was performed with intravenous contrast. CT DOSE: 887.11 mGycm COMPARISON: None available at the time of this dictation. FINDINGS: Lower chest: Mitral annular calcifications are partially visualized. Liver: Unremarkable. No focal lesions are seen. Gallbladder and biliary tree: No calcified gallstones. Normal caliber wall. No intra- or extrahepatic biliary ductal dilation. Pancreas: Unremarkable, no focal lesions. Spleen: Splenic cyst measures 17 mm in diameter. Adrenals: Unremarkable. Kidneys and ureters: Bilateral renal cysts are seen. Bladder: Diffuse homogeneous wall thickening is seen. Reproductive organs: Prostatomegaly is seen. Bowel: Extensive diverticulosis is seen. The appendix is normal.. A small hiatal hernia is seen. Numerous dilated loops of small bowel measure up to 38 mm in diameter. Proximal and distal transition points are seen with underdistention of the distal small bowel and colon. Lymph nodes Retroperitoneal: Unremarkable. Pelvic: Unremarkable. Mesenteric: Unremarkable. Peritoneum: A small amount of free fluid is seen most prominently in the pelvis. Vessels: Atherosclerotic calcifications are seen. Abdominal wall: A fat-containing umbilical hernia is seen. Hernia repair mesh is noted. Right fat-containing umbilical hernia is seen. Bones: Degenerative changes in the visualized spine. IMPRESSION: Closed-loop obstruction of the small bowel is seen with underdistention of the distal bowel. No evidence of perforation or suggestion of wall ischemia. ACT 112: Negative or not required by law. Electronically signed by: Pastor Blank M.D. 08/23/2022 9:10 AM KUB X-Ray 08/25/22 13:22 KUB CLINICAL HISTORY: NG tube need placement needed advanced COMPARISON STUDY: KUB August 25, 2022 at 12:37 PM. FINDINGS: The nasogastric tube has been advanced. The tip projects over the distal stomach. Small bowel dilatation has likely mildly decreased since prior exam. IMPRESSION: Interval advancement of the nasogastric tube. The tip now projects over the distal stomach. ACT 112: Negative or not required by law. Electronically signed by: Sabino Scott M.D. 08/25/2022 2:16 PM (2) Hypertension Hypertension type: unspecified Qualified Code(s): I10 - Essential (primary) hypertension (3) Hyperlipidemia Hyperlipidemia type: unspecified Qualified Code(s): E78.5 - Hyperlipidemia, unspecified
[2022-08-27] MEDS ORDERED: DOCUSATE SODIUM SYRUP 100 MG/10 ML UDC PO STA (12:31)
[2022-08-27] MEDS ORDERED: MAGNESIUM HYDROXIDE SUSP 30 ML UDC PO ONE (12:32)
[2022-08-27] MEDS: lisinopril 40 MG TAB PO SCH (14:16)
[2022-08-27] MEDS: ATORVASTATIN 20 MG TAB PO SCH (14:16)
[2022-08-27] MEDS: METOPROLOL TARTRATE 50 MG TAB PO SCH ×2 (14:17→22:49)
[2022-08-27] MEDS: PANTOprazole 40 MG in SYRINGE 0 ML IV SCH (14:18)
[2022-08-28] MEDS: ACETAMINOPHEN 1,000 MG/100 ML VIAL IV SCH ×3 (02:11→18:28)
[2022-08-28] MEDS: HEPARIN SOD 5,000 UNIT/0.5 ML VIAL SQ SCH ×3 (05:20→19:47)
[2022-08-28 06:43] LABS: Basophils # (auto) 0.03 K/uL (0-0.2); Basophils % (auto) 0.4 %; Eosinophils # (auto) 0.31 K/uL (0-0.50); Eosinophils % (auto) 4.3 %; Hematocrit (blood only) 37.6 % (42.0-52.0); Hemoglobin 13.2 g/dl (14.0-18.0); Immature Granulocytes # (auto) 0.02 K/uL (0.01-0.20); Immature Granulocytes % (auto) 0.3 %; Lymphocytes # (auto) 1.72 K/uL (1.2-3.4); Lymphocytes % (auto) 23.7 %; Mean Corpuscular Hemoglobin 30.4 pg (25.0-34.0); Mean Corpuscular Hgb Conc 35.1 g/dL (32.0-36.0); Mean Corpuscular Volume 86.6 fL (80.0-100.0); Mean Platelet Volume 10.5 fL (9.4-12.4); Monocytes # (auto) 0.69 K/uL (0.11-0.59); Monocytes % (auto) 9.5 %; Neutrophils # (auto) 4.48 K/uL (1.40-6.50); Neutrophils % (auto) 61.8 %; Platelet Count 205 K/uL (130-400); RDW Coefficient of Variation 12.9 % (11.5-14.5); RDW Standard Deviation 40.2 fL (36.4-46.3); Red Blood Count 4.34 M/uL (4.70-6.10); White Blood Count 7.25 K/ul (4.8-10.8)
[2022-08-28 07:05] LABS: Albumin Globulin Ratio 1.7 (0.9-2); Albumin Level 3.9 gm/dl (3.4-5.0); BUN Creatinine Ratio 14.3 (10-20); Bilirubin,Total 1.4 mg/dl (0.2-1.0); Calcium 8.7 mg/dl (8.5-10.1); Creatinine Clr Calc Pharmacy 89.6 ml/min; Est GFR (African American) 102.8 ml/min; Est GFR (Non-African American) 88.7 ml/min; Globulin 2.3 gm/dl (2.5-4.0); Potassium 3.9 mmol/L (3.5-5.1); Total Protein 6.2 gm/dl (6.0-8.3)
[2022-08-28] MEDS: METOPROLOL TARTRATE 50 MG TAB PO SCH ×2 (08:25→19:46)
[2022-08-28] MEDS: lisinopril 40 MG TAB PO SCH (08:25)
[2022-08-28] MEDS: ATORVASTATIN 20 MG TAB PO SCH (08:25)
[2022-08-28] MEDS ORDERED: MAGNESIUM HYDROXIDE SUSP 30 ML UDC PO ONE (09:15)
[2022-08-28] MEDS: PANTOprazole 40 MG in SYRINGE 0 ML IV SCH (10:43)
--- NOTE | 2022-08-28 10:52 | Surgery Progress Note ---
Date of Service August 28, 2022 Assessment & Plan (1) Small bowel obstruction: Plan: 08/28/22 POD#3 status post exploratory laparotomy laparoscopic assisted lysis of adhesion Patient overall is doing very well I suspect within the next 24 hours he will have a bowel movement per his request he would like to have either a suppository or an enema I will oblige him POD#2 status post exploratory lap laparoscopic assisted lysis of adhesion We will DC the NG tube start on clear liquids increase activity POD#1 ex lap, lysis of adhesions.. no bowel resection was performed WBC 6, Hbg 13m Cr 0.8. Vital signs are stable Pt doing as expected Would keep NGT in place until return of bowel function Will d/c loza today Encourage OOB as tolerates and pulmonary toilet [facility] covering over the weekend Admission and Anticipated Discharge Date Admission Date: August 23, 2022 Subjective Feels better than yesterday passing significant amount of flatus feels like he needs to have a bowel movement Still not much of an appetite Stating when he had his laparoscopic incisional hernia repair he needed minimal to getting started as far as bowel movements and GI function Physical Exam Physical Exam: Alert coherent resting comfortably without any abdominal discomfort Oropharyngeal area moist Abdomen benign soft some discomfort in the left side where the incision is the dressings are intact trocar sites without any drainage Results & Data Vital Signs (Past 12 Hours) Vital Signs Temp Pulse Pulse Resp BP Pulse Ox O2 Del Method 08/28/22 09:30 60 08/28/22 08:09 36.5 C 59 L 18 156/86 H 94 Room Air 08/28/22 03:00 36.7 C 60 23 140/80 93 Room Air 08/27/22 23:00 36.7 C 60 20 129/78 93 Room Air 08/27/22 22:58 59 L
[2022-08-28] MEDS ORDERED: SOD PHOSPHATE/SOD BIPHOSPHATE ENEMA 132 ML BTL PR PRN (10:55)
--- NOTE | 2022-08-28 12:02 | Hospitalist Progress Note ---
Date of Service August 28, 2022 Assessment & Plan (1) Small bowel obstruction: Plan: -Patient presented with abdominal pain, nausea. -CT abdomen and pelvis on admission showed closed-loop obstruction of the small bowel. No evidence of perforation or suggestion of wall ischemia. -Initially, he was managed conservatively; did not show significant improvement. -He is status post exploratory laparoscopic with lysis of adhesions on 08/25 by gypsy horne NG tube removed; patient tolerating clear liquid diet. Will advance to full liquid Discussed with general surgery; suppository ordered by surgery. Will monitor on full liquid diet. Discussion done regarding low fiber diet. 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 currently on metoprolol (6) Prediabetes: Plan: - Hx of such, encourage diet and exercise DVT ppx: -teds, scds CODE: Full Dispo: From home PT/OT ordered; patient is independent with all of his ADLs. DC home after resolution of small bowel obstruction. Patient continues to be hospitalized as he required surgery for small bowel obstruction. Patient still does not have any bowel movement. Continue to monitor while inpatient; advancing diet and patient to get a suppository for BM. Admission and Anticipated Discharge Date Admission Date: August 23, 2022 Subjective Patient seen and examined at bedside. No episode of nausea or vomiting overnight. He is passing gas; no bowel movement yet. He is requesting for suppository to help with a bowel movement. Review of Systems Review of Systems: All systems reviewed & are unremarkable except as noted in Subjective Physical Exam Physical Exam: Constitutional: Awake, alert orient x3; in mild discomfort. Respiratory: normal respiratory effort, lungs clear to auscultation, no wheeze, rales, rhonchi. Normal insp/exp effort, no accessory muscle use Cardiovascular: RRR, no murmur, no edema Vessels: no JVD or carotid bruit Chest: normal inspection of chest Abdomen: Dressing clean dry and intact; tenderness around incision site. soft. Musculoskeletal: no cyanosis or clubbing, extremities motor strength 5/5 Skin: no rashes, warm and dry normal turgor Neurologic: PERRL, EOMI, accommodation nl, no face palsy, no dysarthria CN's II- XI intact bilaterally and moves all extremities Psychiatric: A+Ox3, euthymic affect Lymphatic: no cervical or axillary lymphadenopathy : deferred Results & Data Results & Data Vital Signs (Past 12 Hours) Vital Signs Temp Pulse Pulse Resp BP Pulse Ox O2 Del Method 08/28/22 09:30 60 08/28/22 08:09 36.5 C 59 L 18 156/86 H 94 Room Air 08/28/22 03:00 36.7 C 60 23 140/80 93 Room Air Laboratory Results Laboratory Results WBC 7.25 K/ul (4.8-10.8) 08/28/22 06:20 RBC 4.34 M/uL (4.70-6.10) L 08/28/22 06:20 Hgb 13.2 g/dl (14.0-18.0) L 08/28/22 06:20 Hct 37.6 % (42.0-52.0) L 08/28/22 06:20 MCV 86.6 fL (80.0-100.0) 08/28/22 06:20 MCH 30.4 pg (25.0-34.0) 08/28/22 06:20 MCHC 35.1 g/dL (32.0-36.0) 08/28/22 06:20 RDW Std Deviation 40.2 fL (36.4-46.3) 08/28/22 06:20 RDW Coeff of [place]ierra 12.9 % (11.5-14.5) 08/28/22 06:20 Plt Count 205 K/uL (130-400) 08/28/22 06:20 MPV 10.5 fL (9.4-12.4) 08/28/22 06:20 Immature Gran % (Auto) 0.3 % 08/28/22 06:20 Neut % (Auto) 61.8 % 08/28/22 06:20 Lymph % (Auto) 23.7 % 08/28/22 06:20 [place] % (Auto) 9.5 % 08/28/22 06:20 Eos % (Auto) 4.3 % 08/28/22 06:20 Baso % (Auto) 0.4 % 08/28/22 06:20 Neut # (Auto) 4.48 K/uL (1.40-6.50) 08/28/22 06:20 Lymph # (Auto) 1.72 K/uL (1.2-3.4) 08/28/22 06:20 [place] # (Auto) 0.69 K/uL (0.11-0.59) H 08/28/22 06:20 Eos # (Auto) 0.31 K/uL (0-0.50) 08/28/22 06:20 Baso # (Auto) 0.03 K/uL (0-0.2) 08/28/22 06:20 Immature Gran # (Auto) 0.02 K/uL (0.01-0.20) 08/28/22 06:20 Sodium 138 mmol/L (136-145) 08/28/22 06:20 Potassium 3.9 mmol/L (3.5-5.1) 08/28/22 06:20 Chloride 102 mmol/L (98-107) 08/28/22 06:20 Carbon Dioxide 30 mmol/L (21-32) 08/28/22 06:20 Anion Gap 6 (3-11) 08/28/22 06:20 BUN 12 mg/dl (6-23) 08/28/22 06:20 Creatinine 0.84 mg/dl (0.6-1.4) 08/28/22 06:20 Est Cr Clr Drug Dosing 89.6 ml/min 08/28/22 06:20 Est GFR ( Amer) 102.8 ml/min 08/28/22 06:20 Est GFR (Non-Af Amer) 88.7 ml/min 08/28/22 06:20 BUN/Creatinine Ratio 14.3 (10-20) 08/28/22 06:20 Glucose 102 mg/dl (70-99(Fasting)) H 08/28/22 06:20 Lactate 1.8 mmol/L (0.4-2.0) 08/23/22 08:02 Calcium 8.7 mg/dl (8.5-10.1) 08/28/22 06:20 Total Bilirubin 1.4 mg/dl (0.2-1.0) H 08/28/22 06:20 AST 21 U/L (13-39) 08/28/22 06:20 ALT 29 U/L (7-52) 08/28/22 06:20 Alkaline Phosphatase 58 U/L (34-104) 08/28/22 06:20 Total Protein 6.2 gm/dl (6.0-8.3) 08/28/22 06:20 Albumin 3.9 gm/dl (3.4-5.0) 08/28/22 06:20 Globulin 2.3 gm/dl (2.5-4.0) L 08/28/22 06:20 Albumin/Globulin Ratio 1.7 (0.9-2) 08/28/22 06:20 Lipase 42 U/L (11-82) 08/23/22 07:21 Urine Color Yellow 08/23/22 08:44 Urine Appearance Clear (Clear) 08/23/22 08:44 Urine pH 8.5 (4.5-7.5) H 08/23/22 08:44 Ur Specific [place] 1.021 (1.000-1.030) 08/23/22 08:44 Urine Protein Negative (Negative) 08/23/22 08:44 Urine Glucose (UA) Negative (Negative) 08/23/22 08:44 Urine Ketones Trace (Negative) H 08/23/22 08:44 Urine Blood Negative (Negative) 08/23/22 08:44 Urine Nitrite Negative (Negative) 08/23/22 08:44 Urine Bilirubin Negative (Negative) 08/23/22 08:44 Urine Urobilinogen Negative (Negative) 08/23/22 08:44 Ur Leukocyte Esterase Negative (Negative) 08/23/22 08:44 SARS-CoV-2 (PCR) NEGATIVE (Negative) 08/23/22 09:30 Impressions Abdomen/Pelvis CT 08/23/22 07:22 CT abd pelvis IV con only CLINICAL HISTORY: periumbilical abd pain TECHNIQUE: Helical axial images of the abdomen and pelvis were obtained and displayed. Automated dose lowering techniques and/or adjustment according to patient size were utilized for this exam. This exam was performed with intravenous contrast. CT DOSE: 887.11 mGycm COMPARISON: None available at the time of this dictation. FINDINGS: Lower chest: Mitral annular calcifications are partially visualized. Liver: Unremarkable. No focal lesions are seen. Gallbladder and biliary tree: No calcified gallstones. Normal caliber wall. No intra- or extrahepatic biliary ductal dilation. Pancreas: Unremarkable, no focal lesions. Spleen: Splenic cyst measures 17 mm in diameter. Adrenals: Unremarkable. Kidneys and ureters: Bilateral renal cysts are seen. Bladder: Diffuse homogeneous wall thickening is seen. Reproductive organs: Prostatomegaly is seen. Bowel: Extensive diverticulosis is seen. The appendix is normal.. A small hiatal hernia is seen. Numerous dilated loops of small bowel measure up to 38 mm in diameter. Proximal and distal transition points are seen with underdistention of the distal small bowel and colon. Lymph nodes Retroperitoneal: Unremarkable. Pelvic: Unremarkable. Mesenteric: Unremarkable. Peritoneum: A small amount of free fluid is seen most prominently in the pelvis. Vessels: Atherosclerotic calcifications are seen. Abdominal wall: A fat-containing umbilical hernia is seen. Hernia repair mesh is noted. Right fat-containing umbilical hernia is seen. Bones: Degenerative changes in the visualized spine. IMPRESSION: Closed-loop obstruction of the small bowel is seen with underdistention of the distal bowel. No evidence of perforation or suggestion of wall ischemia. ACT 112: Negative or not required by law. Electronically signed by: Pastor Blank M.D. 08/23/2022 9:10 AM KUB X-Ray 08/25/22 13:22 KUB CLINICAL HISTORY: NG tube need placement needed advanced COMPARISON STUDY: KUB August 25, 2022 at 12:37 PM. FINDINGS: The nasogastric tube has been advanced. The tip projects over the distal stomach. Small bowel dilatation has likely mildly decreased since prior exam. IMPRESSION: Interval advancement of the nasogastric tube. The tip now projects over the distal stomach. ACT 112: Negative or not required by law. Electronically signed by: Sabino Scott M.D. 08/25/2022 2:16 PM (2) Hypertension Hypertension type: unspecified Qualified Code(s): I10 - Essential (primary) hypertension (3) Hyperlipidemia Hyperlipidemia type: unspecified Qualified Code(s): E78.5 - Hyperlipidemia, unspecified
[2022-08-28] MEDS: ACETAMINOPHEN 325 MG TAB PO PRN (20:32)
[2022-08-29] MEDS: ACETAMINOPHEN 325 MG TAB PO PRN (02:57)
[2022-08-29] MEDS: HEPARIN SOD 5,000 UNIT/0.5 ML VIAL SQ SCH (04:03)
[2022-08-29 06:28] LABS: Albumin Globulin Ratio 1.6 (0.9-2); Albumin Level 3.9 gm/dl (3.4-5.0); BUN Creatinine Ratio 10.3 (10-20); Bilirubin,Total 1.1 mg/dl (0.2-1.0); Calcium 8.6 mg/dl (8.5-10.1); Creatinine Clr Calc Pharmacy 77.6 ml/min; Est GFR (African American) 91.3 ml/min; Est GFR (Non-African American) 78.8 ml/min; Globulin 2.4 gm/dl (2.5-4.0); Potassium 3.7 mmol/L (3.5-5.1); Total Protein 6.3 gm/dl (6.0-8.3)
[2022-08-29 06:51] LABS: Basophils # (auto) 0.03 K/uL (0-0.2); Basophils % (auto) 0.5 %; Eosinophils # (auto) 0.33 K/uL (0-0.50); Eosinophils % (auto) 5.1 %; Hematocrit (blood only) 37.9 % (42.0-52.0); Hemoglobin 13.2 g/dl (14.0-18.0); Immature Granulocytes # (auto) 0.02 K/uL (0.01-0.20); Immature Granulocytes % (auto) 0.3 %; Lymphocytes # (auto) 1.65 K/uL (1.2-3.4); Lymphocytes % (auto) 25.4 %; Mean Corpuscular Hgb Conc 34.8 g/dL (32.0-36.0); Mean Corpuscular Volume 86.1 fL (80.0-100.0); Mean Platelet Volume 10.9 fL (9.4-12.4); Monocytes # (auto) 0.61 K/uL (0.11-0.59); Monocytes % (auto) 9.4 %; Neutrophils # (auto) 3.86 K/uL (1.40-6.50); Neutrophils % (auto) 59.3 %; Platelet Count 228 K/uL (130-400); RDW Coefficient of Variation 12.8 % (11.5-14.5)
--- NOTE | 2022-08-29 08:55 | Surgery Progress Note ---
I saw this patient with the surgical PA this am, I agree with this plan. See me in 2-3 weeks. Date of Service August 29, 2022 Assessment & Plan (1) Small bowel obstruction: Plan: POD#4 status post exploratory laparotomy laparoscopic assisted lysis of adhesion WBC 6,5, Hbg 13, Cr 0.9 Patient is doing well s/p NGT removal and diet advancement. Having + bms pain controlled, will transition to oral pain meds will advance to low fiber this AM. if does well can likely be discharged to home later today f/u with dr. soliman in 1-2 weeks Admission and Anticipated Discharge Date Admission Date: August 23, 2022 Subjective Patient is feeling well. Pain controlled. He is passing flatus and had BM x2. Tolerating a full liquid diet no n/v. Physical Exam Physical Exam: awake/alert, sitting up at bedside eating breakfast Respiratory: normal respiratory effort Gastrointestinal (Abdomen): Inspection/Auscultation: + abdominal surgical incision (c/d/i) Percussion/Palpation: abdomen soft Results & Data Vital Signs (Past 12 Hours) Vital Signs Temp Pulse Pulse Resp BP Pulse Ox O2 Del Method 08/29/22 07:47 36.5 C 59 L 19 152/83 H 95 Room Air 08/29/22 03:33 36.5 C 57 L 18 119/69 94 Room Air 08/28/22 23:40 37.0 C 58 L 20 140/82 93 Room Air 08/28/22 23:02 59 L PG Care Time/CCT Total # of Minutes Spent Total Time Spent with Patient: Total time spent is greater than 50% in coordination of care (as documented) at patient's floor/unit and/or counseling patient: Coding Level of Care Code 02031 Post Operative Follow-Up Diagnoses Small bowel obstruction K56.609
[2022-08-29] MEDS ORDERED: oxyCODONE HCL IR 5 MG TAB (IMMEDIATE RELEASE) PO PRN (09:04)
[2022-08-29] MEDS: ATORVASTATIN 20 MG TAB PO SCH (09:05)
[2022-08-29] MEDS: lisinopril 40 MG TAB PO SCH (09:05)
[2022-08-29] MEDS: METOPROLOL TARTRATE 50 MG TAB PO SCH (09:06)
[2022-08-29] MEDS: PANTOprazole 40 MG in SYRINGE 0 ML IV SCH (12:00)
--- NOTE | 2022-08-29 13:19 | Discharge Summary ---
Date of Service August 29, 2022 Admission HPI Per Admitting Provider This is a 72-year-old male with PMH HTN, HLD, prediabetes, bifascicular block, BPH who presents with acute onset of abdominal pain He states one month ago had abdominal pain which worsened to cramping and thought that he had food poisoning. This again occurred Monday night where he became nauseated with central abdominal pain, which seemed to wax and wane. He forced himself to throw up which seemed to improve his abdominal pain, but at that point did not think this was again food poisoning. Pt ate two hamburgers for lunch and an orange last night for dinner. He is having regular bowel movements with the last one yesterday night, without blood or other notable changes. He has been using miralax once daily. Pt notes hx of umbilical hernia repair with mesh about 3.5 years ago but has not had any issues since then. He has not had any other abdominal surgeries. 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 He was supposed to have a prostate biopsy today so started a prophylactic dose of Cipro 500 mg last evening, but did not take the second capsule this morning due to nausea. His , Cintia, is present with him at bedside and helps supports the history. He did not take any of his other morning medications secondary to abdominal discomfort. Admission Exam Per Admitting Provider General: awake, alert, no apparent distress Head: Normocephalic, atraumatic ENT: PERRL, EOMI, no pharyngeal exudate, mucous membranes moist Chest: Clear to auscultation, on room air, no adventitious breath sounds Cardiac: Regular rate and rhythm, no murmur, no JVD, normal peripheral pulses, good capillary refill Abdominal: Increased BS in upper abdomen, soft, nondistended, epigastric region tender to palpation, no rebound or guarding Extremities: Normal inspection, no peripheral edema or erythema, calfs nontender to palpation Psych: Normal mood and affect Neuro: AAO x 3, strength intact bilaterally and rated 5/5, no motor deficits, speech is clear, no peripheral sensory deficits Principal Diagnosis Small bowel obstruction status post exploratory laparoscopic with lysis of adhesions on 08/25 by surgery Discharge Exam Constitutional: Awake, alert orient x3; in mild discomfort. NG tube in place. Respiratory: normal respiratory effort, lungs clear to auscultation, no wheeze, rales, rhonchi. Normal insp/exp effort, no accessory muscle use Cardiovascular: RRR, no murmur, no edema Vessels: no JVD or carotid bruit Chest: normal inspection of chest Abdomen: Dressing clean dry and intact; tenderness around incision site. Musculoskeletal: no cyanosis or clubbing, extremities motor strength 5/5 Skin: no rashes, warm and dry normal turgor Neurologic: PERRL, EOMI, accommodation nl, no face palsy, no dysarthria CN's II- XI intact bilaterally and moves all extremities Psychiatric: A+Ox3, euthymic affect Lymphatic: no cervical or axillary lymphadenopathy : deferred Discharge Data Allergies Allergy/AdvReac Type Severity Reaction Status Date / Time No Known Allergies Allergy Verified 06/23/22 09:05 Consultations 08/23/22 09:30 ED Decision to Admit Stat 08/23/22 10:14 Consult General Surgery Routine Procedures Performed Operation Date: 08/25/22 19:40 Actual Procedures p Exploratory Laparoscopy Lysis of Adhesions(Not Applicable) - Chantell Lacy DO Ordered Studies 08/23/22 07:22 CT abd pelvis IV con only Stat Hospital Course (1) Small bowel obstruction: (2) Hypertension: - Resume metoprol and lisinopril (3) Hyperlipidemia: - Resume statin (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 CT abdomen and pelvis on admission showed closed-loop obstruction of the small bowel. No evidence of perforation or suggestion of wall ischemia. Initially, he was managed conservatively; did not show significant improvement. He underwent exploratory laparoscopic with lysis of adhesions on 08/25 by surgery NG tube was removed after the surgery. Patient was started on clear liquid diet and advance to full liquid and eventually low fiber diet. Patient to follow-up with his primary care doctor and surgery as outpatient to remove the cameron. All his home medications will be resumed at discharge. Total Time Total Time Spent Total Time Spent (In Minutes): 35 Total Time Includes: Examination of the Patient, Discharge Planning, Medication Reconciliation, Communication With Other Providers and Other Discharge Plan Discharge Items Patient Disposition: Home - Self-Care Reason For Visit: SBO Discharge Diagnosis: Small bowel obstruction is status post exploratory laparoscopic with lysis of adhesions on 08/25 by surgery Condition on Discharge: Good Activity: Per Instructions section Lifting: No more than 10 pounds Bathing Comment: may shower; no soaking in tubs/pools Exercise/Sports: Wait until after follow-up appointment Driving/Machine Use: no driving if taking narcotics for pain Non-emergency contact: Primary Care Provider and Surgeon Call non-emergency contact if: you have any medication questions, your symptoms worsen, your pain is not controlled, your pain is worsening, your temperature is above 101.5 and your wound pain has increased Follow-up/Referrals: Owen Tanner [Primary Care Provider] - (Dr Tanner's office will call you with a hospital discharge appointment.) Chantell Mondragon DO [Physician] - (Please call to schedule follow up in clinic within 2-3 weeks) Diet: Low Fiber Addtl Attending Provider Instructions: You were admitted to the hospital with a small bowel obstruction. You underwent exploratory laparoscopy with lysis of adhesions on 08/25/2022 by surgery. Please follow low fiber diet. You can also use [id number] milk of magnesia or Colace as a stool softener. Please follow-up with surgery. Please call to make appointment. The surgical cameron will be removed in one of the follow-up appointment. Please follow-up with your regular doctor in 1 week. You have surgical cameron in place that will be removed at one of your follow up appointments Pending Studies at Discharge: No Stand-Alone Forms: [facility], Smoking Cessation Medications and DC Order Prescriptions: Continued lisinopril 40 mg tablet 40 mg PO DAILY multivitamin Tablet 1 tab PO QAM atorvastatin 20 mg Tablet 20 mg PO QAM metoprolol tartrate 25 mg tablet 50 mg PO BID aspirin [Chani Low Dose Aspirin] 81 mg Tablet,Delayed Release (Dr/Ec) 81 mg PO QAM Discontinued ciprofloxacin HCl 500 mg tablet 500 mg PO BID Qty: 2 0RF Rx Instructions: take night before and morning of prostate biopsy Discharge Orders: Discharge Order (Routine); Ordered 08/29/22 Ordered By: Marty Stephen Admission Data Admit Date/Time: 08/23/22 09:48 Attending Provider: Marty Stephen Admit Provider: Pavel Beth Primary Care Provider: Owen Tanner Other Providers: Pavel Beth ; Chantell Mondragon
== END 2022-08-29 15:31 | disposition home or self-care (01) | DRG 335 ==
LOC: ED 07:07 → SUATTDRO 09:48 → 2E 09:48